=== PATIENT | male | born 1960 | race Caucasian/White ===

== ENCOUNTER 2016-10-11 06:05 | Emergency (ER) | payer SELFPAY ==
[2016-10-11 06:23] VITALS: BP 169/102
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
--- NOTE | 2016-10-11 07:52 | RAD ---
INDICATION: Right ring finger injury. TECHNIQUE: 3 views of the right ring finger were obtained. FINDINGS: There is a comminuted fracture of the mid and distal portion of the proximal phalanx. The fracture fragments are slightly . In addition there is significant dorsal angulation of the distal fragment relative to the proximal fragment. Joint spaces appear maintained. IMPRESSION: COMMINUTED, ANGULATED FRACTURE OF THE PROXIMAL PHALANX.
== END 2016-10-11 07:02 | disposition home or self-care (01) ==
LOC: ED 06:05
DX: S62.614A Displaced fracture of proximal phalanx of right ring finger, initial encounter for closed fracture (principal); W19.XXXA Unspecified fall, initial encounter; Y93.9 Activity, unspecified; Y92.9 Unspecified place or not applicable; F17.210 Nicotine dependence, cigarettes, uncomplicated
CPT/HCPCS: 73140; 99282

== ENCOUNTER → 2016-10-15 07:27 | Day surgery (SDC) | payer OTHER ==
[~2016-10-15 07:27] MED LIST: Buffered Lidocaine 1% SYRIN* 3 ML/SYR SYRINGE INTRADERM ONE; Bupivacaine 0.5% SDV PF* 30 ML VIAL ONE; HYDROcodone/ACETAMIN 5-325 MG* 1 TAB ONE; Ketorolac INJ* 30 MG/ML 1 ML VIAL IV PRN; Ketorolac INJ* 30 MG/ML 1 ML VIAL ONE; Midazolam* 1 MG/ML 2 ML VIAL (2 MG) ONE; Ondansetron INJ* 2 MG/ML VIAL IV PRN; ceFAZolin 2 GM PREMIX(*) 2 GM/50 ML BAG IVPB ONE; fentaNYL* 50 MCG/ML 2 ML VIAL (100 MCG VIAL) ONE
[2016-10-15] MEDS: fentaNYL* 50 MCG/ML 2 ML VIAL (100 MCG VIAL) IV PRN ×2 (10:06→10:16)
[2016-10-15 10:46] VITALS: BP 129/84
--- NOTE | 2016-10-15 15:25 | RAD ---
INDICATION: Right fourth digit trauma COMPARISONS: October 11, 2016 TECHNIQUE: Fluoroscopy was provided for a surgical procedure. Total fluoroscopy time is: 3 minutes, 38 seconds FINDINGS: Spot images demonstrate external fixation of the proximal findings of the fourth digit IMPRESSION: FLUOROSCOPY WAS PROVIDED FOR A SURGICAL PROCEDURE CPT II Codes: 6045F
--- NOTE | 2016-10-16 00:26 | OP ---
DATE OF OPERATION: 10/15/16 - [facility] DATE OF : 60 SURGEON: Maia Esquivel MD STORE CLERK CHECKER: HENRY Ahmadi ANESTHESIOLOGIST: Ricardo Juarez MD ANESTHESIA: General. PRE-OP DIAGNOSIS: Comminuted displaced fracture of the right ring finger. POST-OP DIAGNOSIS: Comminuted displaced fracture of the right ring finger. OPERATIVE PROCEDURE: Right ring finger, closed reduction and pinning. ESTIMATED BLOOD LOSS: Zero. INDICATION: Jerome is a 56-year-old man who had a work injury. He was cleaning the floor and a chair dropped on his right hand, fracturing his right ring finger. He presents for closed reduction and pinning. DESCRIPTION OF PROCEDURE: The patient was brought to the operating room and was given a general anesthetic and placed in a supine position on the operating table. The skin of his right upper extremity was prepped and draped in the usual sterile fashion. With longitudinal traction and flexion, the fracture was reduced and then two 0.035 inch K-wires were driven through the metacarpal head with the MP joint at 90 degrees of flexion and the up the shaft and into the distal fragments of the proximal phalanx. The fracture was extremely comminuted and there was no other way to gain purchase to keep the fracture fragments aligned. The alignment on the AP and lateral views was found to be satisfactory and clinically the finger was well aligned. The pins were bent and cut, dressed with Xeroform, 4x4, Webril, and a volar splint. The patient tolerated the procedure well and was brought to the recovery room in good condition. [id number]/[facility] #: [id number] [facility]
== END | disposition home or self-care (01) ==
LOC: OREAST 07:27
PROVIDERS: ATTEND Orthopaedic Surgery
DX: S62.614A Displaced fracture of proximal phalanx of right ring finger, initial encounter for closed fracture (principal); W22.8XXA Striking against or struck by other objects, initial encounter; I10 Essential (primary) hypertension; F17.200 Nicotine dependence, unspecified, uncomplicated
CPT/HCPCS: 76000; C1776; J0690; J1885; J2250; J3010

== ENCOUNTER 2016-10-20 04:49 | Emergency (ER) | payer OTHER ==
[2016-10-20] MEDS ORDERED: NS 0.9% 1000 ML* 1,000 ML IV ONE ×2 (04:57→07:39)
[2016-10-20] MEDS ORDERED: Ondansetron INJ* 2 MG/ML VIAL IV ONE (04:57)
[2016-10-20 05:37] LABS: Hematocrit 48 % (42-52); Hemoglobin 16.1 g/dl (14.0-18.0); Mean Corpuscular HGB Conc 34 g/dl (31-36); Mean Corpuscular Hemoglobin 31 pg (27-31); Mean Corpuscular Volume 91 fL (80-94); Mean Platelet Volume 10 um3 (7.4-10.4); Red Blood Count 5.24 10^6/ul (4.0-5.4); Red Cell Distribution Width 14 % (10.5-15); White Blood Count 19.4 10^3/ul (3.5-10.8)
[2016-10-20 05:48] LABS: Albumin 4.4 g/dL (3.2-5.2); BUN/Creatinine Ratio 24.4 (8-20); C Reactive Protein 3.14 mg/L (< 5.00); EGFR African American 112.3 (>60); EGFR Non-African American 87.3 (>60); Globulin 3.2 g/dL (2-4); Potassium 3.9 mmol/L (3.5-5.0); Total Bilirubin 0.4 mg/dL (0.2-1.0); Total Protein 7.6 g/dL (6.4-8.9)
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
[2016-10-20 08:16] LABS: Urine Bilirubin Negative (Negative); Urine Glucose Negative (Negative); Urine Nitrite Negative (Negative)
[2016-10-20 10:04] VITALS: BP 169/91
--- NOTE | 2016-10-20 16:36 | ED ---
Homero Queen Adam, scribed for Carroll Lake MD on 10/20/16 at 1007 . Progress - Progress Note Progress Note: This patient was signed out to me by Dr. May. Re-Evaluation - Re-Evaluation First Eval Re-Evaluation Time: 09:00 - Pt is still feeling chilled. His states that the pt has these symptoms approximately once a year since 2011. Anti-emetics do not work. Pt is mildly nauseous now. He has not vomited since arriving at the ED. He denies any tenderness in his abdomen. Second Eval Re-Evaluation Time: 09:45 - Pt was ambulated and is not orthostatic. Tolerated PO. Pt will be discharged with follow-up with Dr. Becker (GI) in 2 days for recurrent vomiting and diarrhea. He was instructed to return to the ED for any changing or worsening symptoms. Rx for Reglan will be given. Course/Dx - Diagnoses Provider Diagnoses: Gastroenteritis The documentation as recorded by the coreyibHomero fuchs Adam accurately reflects the service I personally performed and the decisions made by me, Carroll Lake MD.
== END 2016-10-20 10:05 | disposition home or self-care (01) ==
LOC: ED 04:49
DX: K52.9 Noninfective gastroenteritis and colitis, unspecified (principal); R11.2 Nausea with vomiting, unspecified; R19.7 Diarrhea, unspecified
CPT/HCPCS: 36415; 80053; 81003; 83605; 83690; 85025; 86140; 87040; 96374; 99284; J2405

== ENCOUNTER 2016-10-20 17:59 | Observation (INO) | payer OTHER ==
[2016-10-20] MEDS ORDERED: NS 0.9% 1000 ML* 2,000 ML IV ONE (19:00)
[2016-10-20 19:27] LABS: Hematocrit 45 % (42-52); Hemoglobin 15.1 g/dl (14.0-18.0); Mean Corpuscular HGB Conc 34 g/dl (31-36); Mean Corpuscular Hemoglobin 31 pg (27-31); Mean Corpuscular Volume 91 fL (80-94); Mean Platelet Volume 9 um3 (7.4-10.4); Red Blood Count 4.91 10^6/ul (4.0-5.4); Red Cell Distribution Width 14 % (10.5-15); White Blood Count 16.1 10^3/ul (3.5-10.8)
[2016-10-20 19:44] LABS: Albumin 4.4 g/dL (3.2-5.2); BUN/Creatinine Ratio 20.5 (8-20); C Reactive Protein 9.27 mg/L (< 5.00); Calcium 9.9 mg/dL (8.6-10.3); EGFR African American 115.2 (>60); EGFR Non-African American 89.6 (>60); Globulin 3.2 g/dL (2-4); Potassium 3.4 mmol/L (3.5-5.0); Total Bilirubin 0.7 mg/dL (0.2-1.0); Total Protein 7.6 g/dL (6.4-8.9)
[2016-10-20] MEDS ORDERED: LORazepam INJ* 2 MG/ML 1 ML VIAL IV ONE (20:19)
[2016-10-20] MEDS ORDERED: NS 0.9% 1000 ML* 1,000 ML IV SCH (22:15)
[2016-10-20] MEDS ORDERED: Iohexol 300* (CONTRAST) 10 ML SDV IV ONE (22:24)
[2016-10-20] MEDS ORDERED: Ondansetron INJ* 2 MG/ML VIAL IV ONE (23:12)
--- NOTE | 2016-10-21 00:34 | ED ---
Martha Queen Alok, scribed for Marcellus Díaz MD on 10/20/16 at 2216 . Progress - Progress Note Progress Note: NO CRITICAL CARE TIME. PATIENT CONTINUES TO BE NAUSEOUS IN ED, NOT TOLERATING PO. ADMIT HOSPITALIST STABLE. - EKG/XRAY/CT CT: CT abd/pel - IMPRESSION: NO LOCALIZING SIGNS FOR ACUTE PATHOLOGY. Re-Evaluation - Re-Evaluation First Eval Re-Evaluation Time: 22:16 Course/Dx - Diagnoses Provider Diagnoses: Gastroenteritis - Provider Notifications Discussed Care Of Patient With: Dr. Mills (Hospitalist) @ 2210 - Will admit pt following CT The documentation as recorded by the coreyibMartha fuchs Alok accurately reflects the service I personally performed and the decisions made by Bre quiroga William, MD.
[2016-10-21] MEDS ORDERED: Ondansetron INJ* 2 MG/ML VIAL IV PRN (00:36)
[2016-10-21] MEDS: NS 0.9% 1000 ML* 1,000 ML IV SCH ×2 (01:40→10:01)
[2016-10-21] MEDS: Heparin VIAL(*) 5000 UNITS/ML VIAL (FIVE THOUSAND) SUBCUT SCH ×3 (06:18→22:04)
--- NOTE | 2016-10-21 07:47 | RAD ---
CLINICAL HISTORY: Abdominal pain, nausea and vomiting. COMPARISON: Most recent comparison CT is dated January 08, 2016 TECHNIQUE: Contrast enhanced CT examination of the abdomen and pelvis from the lung bases through the initial tuberosities. The patient received 91 mL Omnipaque 300 intravenously prior to imaging.The patient received oral contrast as well prior to imaging. FINDINGS: VISUALIZED LUNG BASES: The visualized lung bases are grossly clear. There is no pleural effusion. ABDOMEN AND PELVIS: There is apparent wall thickening of the distal esophagus extending into the gastroesophageal junction (image 14 of 94) measuring up to 1 cm in thickness. In the right lobe of the liver (image 31) there is a 5 mm hypoattenuating focus unchanged from the January 08, 2016 CT examination. The remainder the liver is homogenous in attenuation. In the cephalocaudal projection the liver measures up to 21.3 cm The spleen, pancreas and adrenal glands are grossly normal in appearance. The gallbladder is normal. The kidneys are normal in appearance without focal mass, calcification or signs of hydronephrosis. Neural contrast has progressed as far as the distal small bowel which limits evaluation of the colon and appendix. The small and large bowel are not distended. The patient's normal appendix is identified in the right lower quadrant measuring 5 mm in diameter (coronal image 45). Scattered rectosigmoid diverticula are seen but none exhibit acute inflammatory change. There is no gross retroperitoneal or mesenteric lymphadenopathy. The pelvic viscera is normal in appearance. At the infrarenal abdominal aorta there is coarse somewhat eccentric atherosclerotic calcification extending into the iliac arteries. Similar eccentric calcification is noted at the bilateral common femoral arteries. Degenerative changes include multilevel loss of intervertebral disc height involving the lower thoracic and lumbar spine.There are no sinister bone lesions. IMPRESSION: 1. Questionable circumferential thickening of the distal esophagus and gastroesophageal junction. Please correlate to symptoms of GERD. If clinically warranted further characterization can be made with endoscopy. 2. Mild hepatomegaly of uncertain clinical significance. 3. Additional chronic and degenerative findings as described in the body of the report unlikely to be likely contributing to the patient's current presentation.
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
[2016-10-21 08:46] LABS: Magnesium 1.8 mg/dL (1.9-2.7)
--- NOTE | 2016-10-21 08:54 | HP ---
HISTORY AND PHYSICAL: DATE OF ADMISSION: 10/21/16 CHIEF COMPLAINT: Nausea, vomiting. HISTORY OF PRESENT ILLNESS: The patient is a 56-year-old gentleman who presented to [facility] with a chief complaint of nausea, vomiting. He was here last night with similar complaints, but felt better and went home. He came back in later in the day with more nausea, vomiting. He states he has the flu. Very little abdominal pain. Some body aches and pains and weakness, but no other specific complaints. No change in his bowel movements. He feels somewhat better after receiving Ativan. Apparently, actually, he refused antiemetics in the ED. PAST MEDICAL HISTORY: Significant for hypertension. CURRENT MEDICATIONS: 1. Percocet 5/325 one tab every 4 hours as needed. 2. Ibuprofen 400 mg every 6 hours as needed. 3. Hydrochlorothiazide 12.5 mg daily. 4. Aspirin 325 mg daily. ALLERGIES: He has no known drug allergies. FAMILY HISTORY: Father with coronary artery disease. SOCIAL HISTORY: Smokes one pack a day for 26 years. Occasional alcohol. Occasional marijuana. 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 He is . His is his healthcare proxy. He has no children. REVIEW OF SYSTEMS: A 14-point review of systems was completed with the patient. All pertinent positives and negatives are in the history of present illness, otherwise it is negative. PHYSICAL EXAMINATION GENERAL: A pleasant gentleman, lying in bed, in no acute distress. VITAL SIGNS: Blood pressure 169/88, pulse ox 95%, respiratory rate 16 breaths per minute, heart rate 79 beats per minute, temperature 99.2 degrees. HEENT: Normocephalic, atraumatic. Pupils equal, round, and react to light. Moist mucous membranes. NECK: Supple. No JVD, bruits, palpable thyroid, or lymphadenopathy. CHEST: Clear to auscultation and percussion bilaterally. CARDIOVASCULAR: S1, S2 appreciated. Regular rate and rhythm. ABDOMEN: Positive bowel sounds in all 4 quadrants. Soft, nontender, nondistended. EXTREMITIES: No cyanosis, clubbing, or edema. NEURO: Alert and oriented x3. Moves all extremities. SKIN: No rashes or abnormalities. LABORATORY DATA/DIAGNOSTIC STUDIES: White count 16.1, hemoglobin 6.1, hematocrit 45, platelets 222. Sodium 136, potassium 3.4, chloride 99, CO2 26, BUN 18, creatinine 0.88, glucose 125, lactic acid 2.7. His CAT scan shows no localizing signs for acute pathology. An EKG shows normal sinus rhythm at 97 beats per minute, normal axis, PVC, LVH, nonspecific ST-T wave changes. ASSESSMENT AND PLAN: 1. Intractable nausea, vomiting, already improved. I think the patient probably had gastroenteritis or viral syndrome. We will hydrate with normal saline 100 mL an hour, Zofran p.r.n., likely d/c in a.m. 2. Hypertension. Stable, continue current regimen. 3. FEN. Regular diet. 4. DVT prophylaxis. Heparin subcu. 5. The patient is a full code. TIME SPENT: Over 75 minutes were spent on this H and P, more than 40 minutes of which were spent in direct [id number] contact with the patient in evaluation, physical exam, counseling, and coordination of care. CC: Conrad Woo MD* [id number]/[facility] #: [id number] ABRAN
[2016-10-21] MEDS ORDERED: Pantoprazole IV* 40 MG IV SCH (09:00)
--- NOTE | 2016-10-21 11:42 | PN ---
Subjective Date of Service: 10/21/16 Interval History: pt c/o sweats, N/V diarrhea x 2 days. similar to an episode last year. Had been taking ibuprofen for fractured finger that was splinted 3 days ago. Smokes 1ppd and marijuana daily. Still nauseated and vomiting this aM. Objective Active Medications: Heparin Sodium (Porcine) (Heparin Vial(*)) 5,000 units SUBCUT Q8HR [facility] Last Admin: 10/21/16 06:18 Dose: 5,000 units Sodium Chloride (Ns 0.9% 1000 Ml*) 1,000 mls @ 125 mls/hr IV PER RATE [facility] Last Admin: 10/21/16 10:01 Dose: 125 mls/hr Ondansetron HCl (Zofran Inj*) 4 mg IV Q4H PRN PRN Reason: NAUSEA Pantoprazole Sodium (Protonix Iv*) 40 mg IV Q24H [facility] Last Admin: 10/21/16 10:01 Dose: 40 mg Vital Signs 10/21/16 10/21/16 10/21/16 00:47 00:57 01:00 Temperature Pulse Rate 76 96 Respiratory Rate Blood Pressure 160/80 169/88 (mmHg) O2 Sat by Pulse 92 84 Oximetry 10/21/16 10/21/16 10/21/16 01:05 01:12 01:39 Temperature 99.8 F 98.1 F Pulse Rate 79 74 76 Respiratory 16 20 Rate Blood Pressure 160/80 147/84 (mmHg) O2 Sat by Pulse 95 99 Oximetry 10/21/16 07:51 Temperature 97.9 F Pulse Rate 57 Respiratory 16 Rate Blood Pressure 167/92 (mmHg) O2 Sat by Pulse 100 Oximetry Oxygen Devices in Use Now: None Appearance: 56 yo M in nAd, aAOx3, poor historian Eyes: No Scleral Icterus, PERRLA Ears/Nose/Mouth/Throat: NL Teeth, Lips, Gums, Mucous Membranes Moist Neck: NL Appearance and Movements; NL JVP, Trachea Midline Respiratory: Symmetrical Chest Expansion and Respiratory Effort, Clear to Auscultation Cardiovascular: NL Sounds; No Murmurs; No JVD, RRR Abdominal: NL Sounds; No Tenderness; No Distention Lymphatic: No Cervical Adenopathy Extremities: No Edema, No Clubbing, Cyanosis, - - R wrist in splint all the way to the tips of pt's fingers Skin: No Rash or Ulcers, No Nodules or Sclerosis Neurological: Alert and Oriented x 3, NL Muscle Strength and Tone, - - R wrist not assesed due to splint Result Diagrams: 10/20/16 18:14 10/20/16 18:14 Additional Lab and Data: Lab Results 10/20/16 10/20/16 10/20/16 Range/Units 18:14 18:14 18:14 WBC 16.1 H (3.5-10.8) 10^3/ul RBC 4.91 (4.0-5.4) 10^6/ul Hgb 15.1 (14.0-18.0) g/dl Hct 45 (42-52) % MCV 91 (80-94) fL MCH 31 (27-31) pg MCHC 34 (31-36) g/dl RDW 14 (10.5-15) % Plt Count 222 (150-450) 10^3/ul MPV 9 (7.4-10.4) um3 Neut % (Auto) 83.0 (38-83) % Lymph % (Auto) 9.6 L (25-47) % [place] % (Auto) 7.0 (1-9) % Eos % (Auto) 0 (0-6) % Baso % (Auto) 0.4 (0-2) % Absolute Neuts (auto) 13.4 H (1.5-7.7) 10^3/ul Absolute Lymphs (auto) 1.5 (1.0-4.8) 10^3/ul Absolute Monos (auto) 1.1 H (0-0.8) 10^3/ul Absolute Eos (auto) 0 (0-0.6) 10^3/ul Absolute Basos (auto) 0.1 (0-0.2) 10^3/ul Absolute Nucleated RBC 0.02 10^3/ul Nucleated RBC % 0.1 Sodium 136 (133-145) mmol/L Potassium 3.4 L (3.5-5.0) mmol/L Chloride 99 L (101-111) mmol/L Carbon Dioxide 26 (22-32) mmol/L Anion Gap 11 (2-11) mmol/L BUN 18 (6-24) mg/dL Creatinine 0.88 (0.67-1.17) mg/dL Est GFR ( Amer) 115.2 (>60) Est GFR (Non-Af Amer) 89.6 (>60) BUN/Creatinine Ratio 20.5 H (8-20) Glucose 125 H (70-100) mg/dL Lactic Acid 2.7 H* (0.5-2.0) mmol/L Calcium 9.9 (8.6-10.3) mg/dL Total Bilirubin 0.70 (0.2-1.0) mg/dL AST 33 (13-39) U/L ALT 49 (7-52) U/L Alkaline Phosphatase 61 (34-104) U/L C-Reactive Protein 9.27 H (< 5.00) mg/L Total Protein 7.6 (6.4-8.9) g/dL Albumin 4.4 (3.2-5.2) g/dL Globulin 3.2 (2-4) g/dL Albumin/Globulin Ratio 1.4 (1-3) Lipase 15 (11.0-82.0) U/L Assess/Plan/Problems-Billing Assessment: 56 yo M with h/o tobacco, marijuana use, as well as HTN presents with N/V and esophageal thickening on CT - Patient Problems (1) Gastroenteritis Comment: N&V - likely viral gastroenteritis, although with pt's h/o having a smililar episode "yearly" and daily marijuana use it is possible that it may be related to cannabis hyperemesis syndrome ( d/w Pt who got upset when informed that marijuana use could cause it) For now cont IVF and antiemetics (2) Esophageal abnormality Comment: thickening noted on CT for EGD today cont PPI IV (3) Tobacco abuse Comment: counseled, cont nicotine inhaler. (4) Hypertension Comment: Cont HCTZ (5) Fracture of phalanx of right ring finger Comment: cont splint (6) DVT (deep venous thrombosis) Comment: low risk , ambulation Status and Disposition: OBV
[2016-10-21] MEDS ORDERED: Nicotine Inhaler* 10 MG AMP INH PRN (11:48)
[2016-10-21] MEDS ORDERED: Mouth Piece, Nicotine* 1 EACH CARTRIDGE INH ONE (12:00)
[2016-10-21] MEDS: Hydrochlorothiazide TAB* 25 MG PO SCH (13:05)
[2016-10-21] MEDS ORDERED: Meperidine SYRINGE* 50 MG/ML ONE (14:32)
[2016-10-21] MEDS ORDERED: Midazolam* 1 MG/ML 10 ML VIAL (10 MG) ONE (14:32)
--- NOTE | 2016-10-21 18:22 | CONS ---
CONSULTATION REPORT: DATE OF CONSULTATION: 10/21/16 REQUESTING PHYSICIAN: Dr. Euceda. INDICATION: Nausea and vomiting. NARRATIVE: Mr. Loredo is a 56-year-old gentleman who states that he developed nausea and vomiting about 48 hours ago. He came to the emergency room yesterday morning due to severe nausea and vomiting. He had blood work that was unremarkable and was diagnosed as having gastroenteritis and he was feeling better, so he decided to go home. A few hours later the nausea and vomiting worsened, he re- presented to the emergency room and was admitted late last night with a presumptive diagnosis of gastroenteritis. He did have a CT of abdomen and pelvis while in the emergency room, which did reveal esophageal thickening. No other abnormalities. The patient states that he has had the flu for the past week. No abdominal pain. He does have muscle aches and weakness. He has been having intermittent fevers. PAST MEDICAL HISTORY: Hypertension. CURRENT MEDICATIONS: Include: 1. Aspirin. 2. Hydrochlorothiazide. 3. Ibuprofen. 4. Percocet. ALLERGIES: None. FAMILY HISTORY: Coronary artery disease. SOCIAL HISTORY: He does smoke tobacco. He additionally uses marijuana on a very regular basis. REVIEW OF SYSTEMS: Twelve systems were reviewed, other than that mentioned in the HPI were unremarkable. PHYSICAL EXAMINATION: Vital Signs: Temperature is 99.8, blood pressure 160/80 , pulse is 74, respiratory rate is 16, O2 sat is 94%. General: Chronically ill - appearing male, no apparent distress. Alert, oriented, pleasant, and fluent. HEENT: Mucous membranes are moist without lesions. Dentition is poor. Face is very flushed. Heart: Regular rate and rhythm and tachy. Lungs: Clear to auscultation. Abdomen: Positive bowel sounds, soft, nontender, and nondistended. No hepatosplenomegaly, masses, rebound, or guarding. Skin: Warm and dry. Musculoskeletal: No CVA or spinal tenderness to palpation. Gait: Normal. DIAGNOSTIC STUDIES/LAB DATA: Of note, his BUN is 18, creatinine is 0.88, glucose of 125. LFTs are unremarkable. C-reactive protein of 9.27. Lipase is normal. CT of abdomen and pelvis revealed questionable circumferential thickening of the distal esophagus in GE junction. Mild hepatomegaly. ASSESSMENT AND PLAN: This is a pleasant 56-year-old gentleman with nausea and vomiting who has a CT showing possible distal esophageal thickening. Possibilities would include erosive esophagitis, H. Pylori, hyperemesis from his marijuana use. At this point, the patient does need an EGD. I will make arrangements for it in the very near future. CC: Dr. Euceda [id number]/[facility] #: [id number] MTDD
[2016-10-21] MEDS ORDERED: amLODIPine TAB* 5 MG PO ONE (18:26)
[2016-10-22] MEDS ORDERED: Temazepam CAP* 15 MG PO PRN (00:25)
[2016-10-22] MEDS ORDERED: amLODIPine TAB* 5 MG PO ONE (00:25)
--- NOTE | 2016-10-22 00:50 | PRO ---
DATE OF PROCEDURE: 10/21/16 - ROOM #408 PROCEDURE: EGD. INDICATION: Nausea and vomiting. REFERRING PHYSICIAN: Conrad Woo MD MEDICATIONS GIVEN: 50 mg IV Demerol and 10 mg IV Versed. DESCRIPTION OF PROCEDURE: After the EGD procedure including the risks, benefits , and alternatives not limited to perforation, surgery, and/or were explained to Mr. Patel, written consent was then obtained, IV medication was given, and a biteblock was placed between the teeth. An Olympus pediatric gastroscope was then inserted into the patient's mouth and advanced down the esophagus, into the stomach, into the distal duodenum. In the esophagus, at the GE junction, the Z-line was intact. I did not appreciate any erosive esophagitis, stricture, or ring. Biopsies were obtained due to the fact that a recent CT showed thickening of the mucosa. I did not appreciate again any erosive esophagitis. The scope was advanced through a widely patent GE junction into the body of the stomach. Retroflexed and forward views revealed mild gastritis. H. pylori with biopsy was obtained and regular biopsies were obtained. The scope was advanced through a widely patent pylorus, into the duodenal bulb, into the distal duodenum, both of which contained duodenitis. Biopsies were obtained. The scope was then withdrawn from the patient. He tolerated the procedure well and was returned to his hospital room in stable condition. IMPRESSION: 1. Complete upper endoscopy into the distal duodenum with biopsies. 2. No evidence of esophageal thickening. Biopsies were obtained. 3. Gastritis, status post biopsy. 4. Duodenitis, status post biopsy. 5. No obvious etiology was seen for his nausea and vomiting. We still need to consider marijuana hyperemesis. CC: Dr. Woo* [id number]/[facility] #: [id number] [facility]
[2016-10-22] MEDS: Heparin VIAL(*) 5000 UNITS/ML VIAL (FIVE THOUSAND) SUBCUT SCH (05:29)
[2016-10-22 06:12] LABS: Hematocrit 42 % (42-52); Hemoglobin 14.4 g/dl (14.0-18.0); Mean Corpuscular HGB Conc 34 g/dl (31-36); Mean Corpuscular Hemoglobin 31 pg (27-31); Mean Corpuscular Volume 91 fL (80-94); Mean Platelet Volume 9 um3 (7.4-10.4); Red Blood Count 4.67 10^6/ul (4.0-5.4); Red Cell Distribution Width 14 % (10.5-15); White Blood Count 10.7 10^3/ul (3.5-10.8)
[2016-10-22 06:36] LABS: BUN/Creatinine Ratio 16.7 (8-20); Calcium 9.3 mg/dL (8.6-10.3); EGFR African American 160.6 (>60); EGFR Non-African American 124.9 (>60); Potassium 3.2 mmol/L (3.5-5.0)
[2016-10-22 08:20] VITALS: BP 138/72
[2016-10-22] MEDS: Hydrochlorothiazide TAB* 25 MG PO SCH (08:25)
[2016-10-22] MEDS ORDERED: Omeprazole CAP* 20 MG PO SCH (09:00)
--- NOTE | 2016-10-23 01:02 | DS ---
CC: Dr. Woo; Dr. Becker; Dr. Esquivel DISCHARGE SUMMARY: DATE OF ADMISSION: 10/21/16 DATE OF DISCHARGE: 10/22/16 PRIMARY CARE PROVIDER: Dr. Woo. DISCHARGE DIAGNOSES: 1. Nausea and vomiting, most likely due to gastroenteritis, although marijuana- related hyperemesis is in differential. 2. Gastritis. SECONDARY DIAGNOSES: 1. Hypertension. 2. Status post right ring finger fracture. The patient currently has a cast. MEDICATIONS AT DISCHARGE: 1. Prilosec 20 mg daily. 2. Oxycodone/acetaminophen on a p.r.n. basis. 3. Hydrochlorothiazide 12.5 mg daily. PROCEDURES DURING THE HOSPITAL STAY: Included upper endoscopy performed by Dr. Becker on 10/21/16. The procedure report, impression: "Complete upper endoscopy in the distal duodenum with biopsies. No evidence of esophageal thickening. Biopsies were obtained. Gastritis, status post biopsy. Duod enitis, status post biopsy. No obvious etiology was seen for this nausea and vomiting. We still ne ed to consider marijuana hyperemesis." DIAGNOSTIC STUDIES/LAB DATA PRIOR TO DISCHARGE: White blood cell count of 10.7, hemoglobin of 14.4, hematocrit of 42, and platelets of 193. Sodium 131, potassium 3.2, chloride 96, carbon dioxide 27, BUN 11, creatinine 0.66. CT of abdomen and pelvis on 10/20/16, impression: "Questionable circumferential thickening of the d istal esophagus and gastroesophageal junction. Please correlate to symptoms of gastroesophageal ref lux disease. If clinically warranted, further characterization to be made with endoscopy. Mild hep atomegaly of uncertain clinical significance. Additional chronic and degenerative findings as descr ibed in the body of the report." HOSPITALIZATION COURSE: Mr. Loredo is a 56-year-old male, who has history of what appears to be cycl ical nausea and vomiting. The patient fractured his right ring finger at the beginning of the week and was placed in a splint 4 days ago. He had been using ibuprofen p.r.n. for pain. He presented t o the hospital with intractable nausea and vomiting. The patient also has history of chronic daily marijuana use and that was raised as possible etiology of the patient's cyclical vomiting, although the patient was not happy with the diagnosis. Nevertheless, due to CT showing circumferential thick ening of the vessel that is mentioned above and EGD was performed by Dr. Becker that noticed gastri tis but no confirmation of the thickening was noted during the EGD. The patient was placed on intra venous fluids and Protonix intravenously throughout his hospital stay and by the time of discharge, he was able to tolerate regular diet. He is going to be placed on Prilosec twice a day. He was adv ised not to use nonsteroidal antiinflammatory medications anymore and use Tylenol or the Percocet as provided by his orthopedic surgeon. At discharge, the patient is recommended to follow up with his primary care provider in approximatel y 4 to 7 days. PHYSICAL EXAMINATION AT THE TIME OF DISCHARGE: Blood pressure of 138/72, heart rate of 69 and regul ar, respiratory rate 16, oxygen saturation 96% on room air, temperature 99.0. General: The patient is very pleasant 56-year-old male, who is in no acute distress. Alert, awake, and oriented x3. HE ENT: Head: Atraumatic, normocephalic. Eyes: Pupils equal, reactive to light and accommodation. O ropharynx clear. Mucosa moist. Neck: Supple. No JVD, no bruit bilaterally. Cardiovascular: Regu lar rate and rhythm. No murmur. Respiratory: Clear to auscultation bilaterally. Abdomen: Soft, nontender. Bowel sounds present in all 4 quadrants. Extremities: There is no edema. Pulses +2 bi laterally. No clubbing or cyanosis. Please note that right wrist is in a cast. Please note that this is a short summary of the patient's hospital stay. Please refer to further wa dical records for details. TIME SPENT: Approximately 40 minutes was spent on the patient's discharge. [id number]/[facility] #: [id number]
== END 2016-10-22 10:00 | disposition home or self-care (01) ==
LOC: ED 17:59 → MED 10-21 00:37
PROVIDERS: ADMIT Internal Medicine; ATTEND Internal Medicine
PROC: 0DB98ZX Excision of Duodenum, Via Natural or Artificial Opening Endoscopic, Diagnostic (ICD-10-PCS; principal; 2016-10-21)
PROC: 0DB68ZX Excision of Stomach, Via Natural or Artificial Opening Endoscopic, Diagnostic (ICD-10-PCS; 2016-10-21)
PROC: 0DB58ZX Excision of Esophagus, Via Natural or Artificial Opening Endoscopic, Diagnostic (ICD-10-PCS; 2016-10-21)
DX: R11.2 Nausea with vomiting, unspecified (principal); K29.70 Gastritis, unspecified, without bleeding; K29.80 Duodenitis without bleeding; K22.9 Disease of esophagus, unspecified; I10 Essential (primary) hypertension; I51.7 Cardiomegaly; R94.31 Abnormal electrocardiogram [ECG] [EKG]; Z79.899 Other long term (current) drug therapy; F12.10 Cannabis abuse, uncomplicated; F17.210 Nicotine dependence, cigarettes, uncomplicated
CPT/HCPCS: 36415; 74177; 80048; 80053; 83605; 83690; 83735; 85025; 86140; 87077; 88305; 88312; 93005; 96361; 96372; 96374; 96375; 99285; A9270-GY; G0378; J1644; J2060; J2250; Q9967

== ENCOUNTER 2017-01-25 07:21 | Emergency (ER) | payer OTHER ==
[2017-01-25 07:25] VITALS: BP 140/100
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
== END 2017-01-25 09:05 | disposition home or self-care (01) ==
LOC: ED 07:21
DX: S61.210A Laceration without foreign body of right index finger without damage to nail, initial encounter (principal); W26.9XXA Contact with unspecified sharp object(s), initial encounter; Y93.9 Activity, unspecified; Y92.9 Unspecified place or not applicable; Y99.9 Unspecified external cause status; F17.210 Nicotine dependence, cigarettes, uncomplicated
CPT/HCPCS: 12001; 99282

== ENCOUNTER 2017-01-31 09:31 | Observation (INO) | payer OTHER ==
[2017-01-31] MEDS ORDERED: NS 0.9% 1000 ML* 1,000 ML IV ONE ×2 (11:47→13:47)
[2017-01-31] MEDS ORDERED: Ondansetron INJ* 2 MG/ML VIAL IV ONE (11:47)
[2017-01-31 12:13] LABS: Hematocrit 52 % (42-52); Hemoglobin 17.4 g/dl (14.0-18.0); Mean Corpuscular HGB Conc 33 g/dl (31-36); Mean Corpuscular Hemoglobin 32 pg (27-31); Mean Corpuscular Volume 96 fL (80-94); Mean Platelet Volume 9 um3 (7.4-10.4); Red Blood Count 5.44 10^6/ul (4.0-5.4); Red Cell Distribution Width 14 % (10.5-15); White Blood Count 13.5 10^3/ul (3.5-10.8)
--- NOTE | 2017-01-31 12:26 | RAD ---
HISTORY: Chest pain COMPARISONS: January 27, 2016 VIEWS:1: Single frontal portable view of the chest at 12 5:00 PM FINDINGS: LINES AND TUBES: None. CARDIOMEDIASTINAL SILHOUETTE: The cardiomediastinal silhouette is normal for portable technique. PLEURA: The costophrenic angles are sharp. No pleural abnormalities are noted. LUNG PARENCHYMA: The lungs are clear. ABDOMEN: The upper abdomen is clear. There is no subphrenic gas. BONES AND SOFT TISSUES: No bone or soft tissue abnormalities are noted. IMPRESSION: NO ACTIVE CARDIOPULMONARY DISEASE.
[2017-01-31 12:28] LABS: ALT 19 U/L (7-52); AST 17 U/L (13-39); Albumin 4.8 g/dL (3.2-5.2); Alkaline Phosphatase 57 U/L (34-104); Amylase 24 U/L (29-103); Anion Gap 10 mmol/L (2-11); Blood Urea Nitrogen 15 mg/dL (6-24); C Reactive Protein < 1.00 mg/L (< 5.00); CO2 Carbon Dioxide 25 mmol/L (22-32); Calcium 10.4 mg/dL (8.6-10.3); Chloride 101 mmol/L (101-111); Creatine Kinase 59 U/L (10-223); EGFR African American 106.8 (>60); Globulin 3.3 g/dL (2-4); Glucose 161 mg/dL (70-100); Lipase 15 U/L (11.0-82.0); Sodium 136 mmol/L (133-145); Total Protein 8.1 g/dL (6.4-8.9)
[2017-01-31] MEDS ORDERED: Metoclopramide IV* 5 MG/ML 2 ML VIAL IV SLOW PU ONE (13:36)
[2017-01-31 14:38] LABS: TSH (Thyroid Stimulating Horm) 0.62 mcIU/mL (0.34-5.60)
[2017-01-31 14:45] LABS: Free T4 0.95 ng/dL (0.61-1.12)
[2017-01-31 19:12] LABS: Urine Bilirubin Negative (Negative); Urine Glucose 1+(50 mg/dL) (Negative); Urine Nitrite Negative (Negative)
[2017-01-31] MEDS ORDERED: Calcium Carbonate CHEW TAB* 500 MG (TUMS) ONE (20:48)
[2017-01-31] MEDS: Hydrochlorothiazide TAB* 25 MG PO SCH (20:49)
[2017-01-31] MEDS: Calcium Carbonate CHEW TAB* 500 MG (TUMS) PO PRN (20:49)
[2017-01-31] MEDS: Ondansetron INJ* 2 MG/ML VIAL IV PRN (21:18)
[2017-01-31] MEDS ORDERED: Acetaminophen TAB* 325 MG PO PRN (21:48)
[2017-01-31] MEDS: Zolpidem TAB* 5 MG PO PRN (23:22)
--- NOTE | 2017-02-01 00:33 | HP ---
CC: Conrad Woo MD * HISTORY AND PHYSICAL: DATE OF ADMISSION: 01/31/17 PRIMARY CARE PROVIDER: Conrad Woo MD. ATTENDING PHYSICIAN: Jenna Mcdonald DO * (dictated by Yaz Bennett NP). CHIEF COMPLAINT: Hypertension, nausea and vomiting. HISTORY OF PRESENT ILLNESS: Mr. Loredo is a 56-year-old male with past medical history significant for hypertension, who presents to [facility] with a chief complaint of nausea and vomiting. The patient denies any recent cold symptoms. He reports chills, denies fever. He denies chest pain. He reports an occasional white phlegm production with cough. When nauseous, he reports shortness of breath. The patient reports that he vomited once yesterday and has vomited 4 times today and he continues to have persistent nausea. He also reports diarrhea over the last several days and prior to that some constipation and abdominal pain intermittently when he is nauseous. The patient denies dysuria. The patient decided to present to the emergency room for further evaluation of his symptoms. While in the emergency room, the patient was found to be hypothermic with a temperature of 95.3. The patient was also noted to be hypertensive with systolic blood pressures up into the 180s while in the emergency room. The patient received Reglan, Zofran and 2 L of saline while in the emergency room. Hospitalists were asked to evaluate the patient for admission. PAST MEDICAL HISTORY: Hypertension. PAST SURGICAL HISTORY: Status post ORIF of the right ring finger. HOME MEDICATIONS: Include hydrochlorothiazide 12.5 mg oral daily at bedtime. ALLERGIES: No known drug allergies. FAMILY HISTORY: The patient reports his father had a history of myocardial infarction in his 50s. He denies any family history of diabetes mellitus or cancer. SOCIAL HISTORY: The patient is a current smoker. Six months ago, he quit smoking cigarettes. Prior to that he smoked a pack a day since he was 26 years old. Over the last 6 months, he has been smoking 1 cigar daily. The patient reports drinking a 6 pack of beer 2 to 3 days a week. He reports smoking marijuana approximately every other day. 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 His , Keena, will be his surrogate decision maker in the event he is unable to make decisions for himself. REVIEW OF SYSTEMS: I performed a 14-point review of systems. All the pertinent positives and negatives are mentioned in the history of present illness. The remaining review of systems are negative. PHYSICAL EXAMINATION GENERAL APPEARANCE: The patient is alert, pleasant, and appears to be in no acute distress. VITAL SIGNS: Temperature 98.2, heart rate 59, respiratory rate 20, O2 sat 100% on room air, blood pressure 164/95. HEENT: Normocephalic, atraumatic. Pupils are equal and reactive to light. Extraocular movements are intact. RESPIRATORY: There is no accessory muscle use and the lungs are clear to auscultation bilaterally. CARDIOVASCULAR: Regular rate and rhythm. S1 and S2 present. There is no murmurs, rubs or gallops heard. ABDOMEN: Soft, nontender, nondistended. There are bowel sounds present x4. EXTREMITIES: There is no lower extremity edema. DP and PT pulses are 2+ and symmetric. MUSCULOSKELETAL: There is no clubbing or cyanosis noted. The patient exhibits good strength in all extremities. NEUROLOGIC: The patient is alert and oriented x4. Cranial nerves II through XII are grossly intact. PSYCHOLOGICAL: The patient is calm and cooperative. SKIN: There are no rashes or abnormalities seen. DIAGNOSTIC STUDIES/LABORATORY DATA: Sodium 134, potassium 4.0, chloride 101, CO2 25, BUN 15, creatinine 0.94, glucose 161. White blood cell count 15.5, hemoglobin 17.4, hematocrit 52, and platelet count 222,000. Chest x-ray from today. Radiologist's impression: No active cardiopulmonary disease. IMPRESSION: Mr. Loredo is a 56-year-old male with past medical history significant for hypertension who presents to the emergency room with complaints of intractable nausea and vomiting. He will be admitted as an observation for intractable nausea and vomiting. ASSESSMENT/PLAN: 1. Intractable nausea and vomiting. It appears the patient is already improving. This is similar to previous presentations when he was diagnosed with a gastritis and duodenitis. The patient had a full GI workup 2 years ago with no findings to show for why he was having these symptoms. The patient will have Zofran as needed. For now, we will hold on normal saline as he is hypertensive and has already received 2 L. He will have a clear liquid diet. I suspect this is likely cyclic vomiting syndrome related to his marijuana use. The patient has been encouraged to stop smoking marijuana. 2. Hypertension. The patient has been hypertensive. He takes his hydrochlorothiazide in the evening. We will continue him on his hydrochlorothiazide. 3. Fluids, electrolytes, and nutrition. Clear liquid diet. 4. Code status: Full code. 5. DVT prophylaxis. The patient is a low risk and will be encouraged to ambulate. 6. Disposition. Observation. TIME SPENT: The time spent for this admission was approximately 60 minutes, greater than half of that was spent with the patient discussing discharge plans , past medical history and the events leading up to his arrival today and performing a physical examination. The case has been reviewed with the attending, Dr. Mcdonald, who agrees with the plan of care. Reviewed by JABIER KHALIL 02/01/17 1828 [id number]/[facility] #: [id number] ABRAN
[2017-02-01] MEDS: Ondansetron INJ* 2 MG/ML VIAL IV PRN ×3 (03:58→16:38)
[2017-02-01 05:43] LABS: Hematocrit 49 % (42-52); Hemoglobin 16.3 g/dl (14.0-18.0); Mean Corpuscular HGB Conc 33 g/dl (31-36); Mean Corpuscular Hemoglobin 32 pg (27-31); Mean Corpuscular Volume 95 fL (80-94); Mean Platelet Volume 9 um3 (7.4-10.4); Red Blood Count 5.11 10^6/ul (4.0-5.4); Red Cell Distribution Width 14 % (10.5-15); White Blood Count 15.2 10^3/ul (3.5-10.8)
[2017-02-01] MEDS: Calcium Carbonate CHEW TAB* 500 MG (TUMS) PO PRN ×2 (09:02→19:28)
[2017-02-01] MEDS: PROCHLORPERAZINE INJ 5 MG/ML 2 ML VIAL IV PRN ×2 (12:38→21:54)
--- NOTE | 2017-02-01 14:33 | PN ---
Subjective Date of Service: 02/01/17 Interval History: Patient seen and examined at bedside. Denies chest pain, shortness of breath, diarrhea. Pt reports subjective fever, no documented fevers and chills. Pt also reports continued nausea that is improved with Zofran. Pt reports 1 episode of vomiting earlier today. Pt doesn't feel ready for discharge today. Family History: Unchanged from Admission Social History: Unchanged from Admission Past Medical History: Unchanged from Admission Objective Active Medications: Acetaminophen (Tylenol Tab*) 650 mg PO Q6H PRN Reason: PAIN Calcium Carbonate (Tums*) 500 mg PO Q4H PRN Reason: INDIGESTION Hydrochlorothiazide (Hydrodiuril Tab*) 12.5 mg PO BEDTIME NABILA Ondansetron HCl (Zofran Inj*) 4 mg IV Q6H PRN Reason: NAUSEA Prochlorperazine Edisylate (Compazine Inj*) 5 mg IV Q6H PRN Reason: NAUSEA/ VOMITING Zolpidem Tartrate (Ambien Tab*) 5 mg PO BEDTIME PRN Reason: INSOMNIA Vital Signs 01/31/17 01/31/17 01/31/17 15:28 15:45 17:18 Temperature 98.2 F 98.2 F 98.7 F Pulse Rate 59 59 78 Respiratory 20 20 Rate Blood Pressure 164/95 164/95 152/90 (mmHg) O2 Sat by Pulse 100 100 Oximetry 01/31/17 01/31/17 01/31/17 18:09 19:55 21:23 Temperature 98.1 F 99.6 F Pulse Rate 66 71 Respiratory 20 Rate Blood Pressure 154/79 159/100 (mmHg) O2 Sat by Pulse 99 Oximetry 01/31/17 02/01/17 02/01/17 23:22 04:04 04:08 Temperature 99.0 F 97.2 F Pulse Rate 73 66 Respiratory 16 20 Rate Blood Pressure 162/86 156/76 (mmHg) O2 Sat by Pulse 95 100 Oximetry 02/01/17 02/01/17 02/01/17 07:34 07:43 11:35 Temperature 98.3 F 98.2 F Pulse Rate 71 68 Respiratory 14 16 Rate Blood Pressure 179/124 160/94 130/71 (mmHg) O2 Sat by Pulse 100 95 Oximetry Oxygen Devices in Use Now: None Appearance: NAD, laying in bed Ears/Nose/Mouth/Throat: Mucous Membranes Moist Respiratory: Symmetrical Chest Expansion and Respiratory Effort, Clear to Auscultation Cardiovascular: NL Sounds; No Murmurs; No JVD, RRR Abdominal: NL Sounds; No Tenderness; No Distention Extremities: No Edema Skin: No Rash or Ulcers Neurological: Alert and Oriented x 3, NL Muscle Strength and Tone Lines/Tubes/Other Access: Clean, Dry and Intact Peripheral IV - site benign Nutrition: Taking PO's Result Diagrams: 02/01/17 05:20 01/31/17 12:00 Additional Lab and Data: Assess/Plan/Problems-Billing Assessment: Mr. Loredo is a 56 yo male with PMH significant for HTN and recurrent episodes of intractable vomiting who presented to the emergency room with complaints of intractable nausea and vomiting. - Patient Problems (1) Intractable nausea and vomiting Code(s): R11.2 - NAUSEA WITH VOMITING, UNSPECIFIED SNOMED Code(s): 936260025 Comment: - Suspect this is related to his marijuana use, could also represent a viral gastroenteritis - Pt declined trying ativan or Tigan for nausea - Continue Zofran and Compazine prn (2) Leukocytosis Code(s): D72.829 - ELEVATED WHITE BLOOD CELL COUNT, UNSPECIFIED SNOMED Code(s) : 804842508 Comment: - Unclear cause, suspect possible viral process - Afebrile - U/A negative - Blood cultures, no growth day 1 - Will follow WBCs (3) Hypertension Code(s): I10 - ESSENTIAL (PRIMARY) HYPERTENSION SNOMED Code(s): 11266055 Comment: - Pt hypertensive at times - Continue HCTZ, will increase dose if continues to be hypertensive (4) Tobacco abuse Current Visit: No Status: Acute Code(s): Z72.0 - TOBACCO USE SNOMED Code(s ): 484351736 Comment: - Counseled - Nicotine inhaler (5) DVT prophylaxis Code(s): PWT4266 - SNOMED Code(s): 507374629 Comment: - encourage ambulation (6) Full code status Code(s): Z78.9 - OTHER SPECIFIED HEALTH STATUS SNOMED Code(s): 821493451 Status and Disposition: OBV. Discharge to home when medically stable.
[2017-02-01] MEDS ORDERED: Mouth Piece, Nicotine* 1 EACH CARTRIDGE INH ONE (15:00)
[2017-02-01] MEDS ORDERED: Nicotine Inhaler* 10 MG AMP INH PRN (15:04)
[2017-02-01] MEDS: Hydrochlorothiazide TAB* 25 MG PO SCH (21:02)
[2017-02-01] MEDS: Zolpidem TAB* 5 MG PO PRN (21:02)
[2017-02-02] MEDS: Ondansetron INJ* 2 MG/ML VIAL IV PRN ×2 (01:00→08:28)
[2017-02-02] MEDS: PROCHLORPERAZINE INJ 5 MG/ML 2 ML VIAL IV PRN ×2 (03:47→11:25)
[2017-02-02 04:56] LABS: Hematocrit 48 % (42-52); Hemoglobin 16.1 g/dl (14.0-18.0); Mean Corpuscular HGB Conc 33 g/dl (31-36); Mean Corpuscular Hemoglobin 32 pg (27-31); Mean Corpuscular Volume 96 fL (80-94); Mean Platelet Volume 9 um3 (7.4-10.4); Red Blood Count 5.06 10^6/ul (4.0-5.4); Red Cell Distribution Width 14 % (10.5-15); White Blood Count 11.1 10^3/ul (3.5-10.8)
[2017-02-02 07:31] VITALS: BP 157/99
[2017-02-02] MEDS ORDERED: Hydrochlorothiazide TAB* 25 MG PO SCH (10:43)
--- NOTE | 2017-02-02 10:47 | PN ---
Subjective Date of Service: 02/02/17 Interval History: Mr. Loredo states that he does not feel great but that he has had no vomiting today. He does have some continued nausea. He denies chest pain, SOB, or abdominal pain. He is tolerating oral intake. Family History: Unchanged from Admission Social History: Unchanged from Admission Past Medical History: Unchanged from Admission Objective Active Medications: Acetaminophen (Tylenol Tab*) 650 mg PO Q6H PRN Calcium Carbonate (Tums*) 500 mg PO Q4H PRN Hydrochlorothiazide (Hydrodiuril Tab*) 12.5 mg PO BEDTIME NABILA Nicotine (Nicotine Inhaler*) 10 mg INH Q2H PRN Ondansetron HCl (Zofran Inj*) 4 mg IV Q6H PRN Prochlorperazine Edisylate (Compazine Inj*) 5 mg IV Q6H PRN Zolpidem Tartrate (Ambien Tab*) 5 mg PO BEDTIME PRN Vital Signs 02/01/17 02/01/17 02/01/17 11:35 12:24 15:16 Temperature 98.2 F 97.9 F 98.3 F Pulse Rate 68 70 55 Respiratory 16 15 16 Rate Blood Pressure 130/71 172/107 136/89 (mmHg) O2 Sat by Pulse 95 100 96 Oximetry 02/01/17 02/01/17 02/01/17 19:23 19:30 20:00 Temperature 97.8 F Pulse Rate 66 Respiratory 20 20 Rate Blood Pressure 172/106 168/90 (mmHg) O2 Sat by Pulse 100 Oximetry 02/01/17 02/02/17 02/02/17 23:16 00:00 03:29 Temperature 98.9 F 98.7 F Pulse Rate 74 68 Respiratory 17 17 Rate Blood Pressure 177/105 164/92 129/82 (mmHg) O2 Sat by Pulse 94 95 Oximetry 02/02/17 02/02/17 07:28 07:44 Temperature 98.9 F Pulse Rate 59 Respiratory 16 16 Rate Blood Pressure 157/99 (mmHg) O2 Sat by Pulse 100 Oximetry Oxygen Devices in Use Now: None Appearance: Male lying in bed in NAD Eyes: No Scleral Icterus Ears/Nose/Mouth/Throat: Mucous Membranes Moist Neck: Trachea Midline Respiratory: Symmetrical Chest Expansion and Respiratory Effort, Clear to Auscultation Cardiovascular: NL Sounds; No Murmurs; No JVD, No Edema Abdominal: NL Sounds; No Tenderness; No Distention Lymphatic: No Cervical Adenopathy Extremities: No Edema Skin: No Rash or Ulcers Neurological: Alert and Oriented x 3, NL Muscle Strength and Tone Nutrition: Taking PO's Result Diagrams: 02/02/17 04:34 01/31/17 12:00 Additional Lab and Data: Assess/Plan/Problems-Billing Assessment: Mr. Loredo is a 56 yo male with PMH significant for HTN and recurrent episodes of intractable vomiting who presented to the emergency room with complaints of intractable nausea and vomiting. - Patient Problems (1) Intractable nausea and vomiting Comment: - Suspect this is cyclic vomiting syndrome. Has had EGD September 2016 showing gastritis and duodenitis only - Continue Zofran and Compazine prn. - Recommend follow up with PCP and Gastroenterology. (2) Leukocytosis Comment: - Unclear cause, suspect possible viral process vs stress response. - Afebrile. U/A negative. Blood cultures, no growth day. (3) Hypertension Comment: - SBP 160-170s. - Increase hctz, follow up with PCP. (4) Tobacco abuse Comment: - Counseled - Nicotine inhaler (5) DVT prophylaxis Comment: - encourage ambulation (6) Full code status Status and Disposition: OBV. Discharge to home.
[2017-02-02] MEDS: Calcium Carbonate CHEW TAB* 500 MG (TUMS) PO PRN (11:26)
--- NOTE | 2017-02-03 02:28 | DS ---
CC: Dr. Woo * HOSPITAL MEDICINE DISCHARGE SUMMARY: DATE OF ADMISSION: 01/31/17 DATE OF DISCHARGE: 02/02/17 PRIMARY CARE PHYSICIAN: Dr. Woo. ATTENDING PHYSICIAN: Mehdi Coley MD * (dictation provided by Mahi Deutsch NP ). PRIMARY DIAGNOSIS: Nausea and vomiting with suspected cyclic vomiting syndrome. SECONDARY DIAGNOSES: Hypertension and history of open reduction internal fixation of the right ring finger. MEDICATION AT THE TIME OF DISCHARGE: Hydrochlorothiazide 25 mg p.o. at bedtime (new dose). HISTORY OF PRESENT ILLNESS: Mr. Loredo is a 56-year-old male with past medical history of episodes of nausea and vomiting intermittently, who presented to the hospital again with uncontrolled nausea and vomiting on 01/31/17. Please see the dictated H and P from Yaz Walsh for complete details. In brief, the patient reported similar symptoms with admission to the hospital 2 times in 2015 and earlier in September of this year. He had had consultation with Dr. Becker in September and had an upper endoscopy which at that time showed gastritis and duodenitis, but there was concern that his nausea and vomiting was related to cannabis use. Mr. Loredo states that he has cut back on his marijuana use and he is very clear in his own mind that marijuana is not contributing to his nausea and vomiting. Regardless, he was treated with some IV fluids and antiemetics and he is feeling better today. He is still somewhat nauseous but he has not been vomiting. He is able to keep down oral intake. I suggested to Mr. Loredo that he likely has cyclic vomiting syndrome and I provided him with some information about that to take home with him to read. I suggested that he could try supplements of l-carnitine and coenzyme Q10, which have been recommended in a small study as supplements that could help with his symptoms. I have also suggested he could consider using an antidepressant, though he is not interested in doing that. Mr. Loredo is medically stable for discharge to home and follow up with Dr. Woo. I will note during this hospitalization the patient's blood pressure was elevated systolically to the 170s and I have increased his hydrochlorothiazide from 12.5 to 25 mg daily. DISPOSITION: Home. DIET: Regular. ACTIVITY: As tolerated. FOLLOWUP PLANS: Please follow up with Dr. Woo regarding question of cyclic vomiting syndrome and management of hypertension. MAHI DEUTSCH NP [id number]/[facility] #: [id number] ABRAN
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
== END 2017-02-02 13:35 | disposition home or self-care (01) ==
LOC: ED 09:31 → MED 14:33
PROVIDERS: ADMIT Internal Medicine; ATTEND Internal Medicine
DX: R11.2 Nausea with vomiting, unspecified (principal); I10 Essential (primary) hypertension; D72.829 Elevated white blood cell count, unspecified; R68.83 Chills (without fever); R06.02 Shortness of breath; R19.7 Diarrhea, unspecified; F12.10 Cannabis abuse, uncomplicated; F17.200 Nicotine dependence, unspecified, uncomplicated
CPT/HCPCS: 36415; 71010; 80053; 81003; 82150; 82550; 83605; 83690; 83735; 84439; 84443; 84484; 85025; 86140; 87040; 96361; 96374; 96375; 96376; 99284; 99406; A9270-GY; G0378; J0780; J2405

== ENCOUNTER 2017-02-03 07:27 | Emergency (ER) | payer OTHER ==
[2017-02-03] MEDS ORDERED: Pantoprazole IV* 40 MG IV ONE (07:52)
[2017-02-03] MEDS ORDERED: Ondansetron INJ* 2 MG/ML VIAL IV ONE (07:52)
[2017-02-03] MEDS ORDERED: diPHENhydraMINE IV* 50 MG/ML 1 ml VIAL (BENADRYL) IV ONE (07:55)
[2017-02-03] MEDS: NS 0.9% 1000 ML* 2,000 ML IV ONE ×2 (08:29→08:32)
[2017-02-03 08:46] LABS: Hematocrit 50 % (42-52); Mean Corpuscular HGB Conc 34 g/dl (31-36); Mean Corpuscular Hemoglobin 32 pg (27-31); Mean Corpuscular Volume 93 fL (80-94); Mean Platelet Volume 9 um3 (7.4-10.4); Red Blood Count 5.36 10^6/ul (4.0-5.4); Red Cell Distribution Width 14 % (10.5-15); White Blood Count 12.6 10^3/ul (3.5-10.8)
--- NOTE | 2017-02-03 08:54 | RAD ---
HISTORY: Nausea and vomiting COMPARISONS: March 24, 2012 VIEWS: Frontal and left lateral decubitus of the abdomen FINDINGS: BOWEL: There is a nonobstructive bowel gas pattern. There is a moderate amount of stool within the colon. CALCULI: There are no abnormal calculi. BONES AND SOFT TISSUES: Mild degenerative changes are noted OTHER FINDINGS: The lung bases are clear. There is no subphrenic gas. IMPRESSION: NONOBSTRUCTIVE BOWEL GAS PATTERN.
[2017-02-03] MEDS ORDERED: hydrALAZINE IV* 20 MG/ML VIAL IV SLOW PU ONE (09:07)
[2017-02-03 09:09] LABS: ALT 16 U/L (7-52); AST 15 U/L (13-39); Albumin 4.2 g/dL (3.2-5.2); Alkaline Phosphatase 50 U/L (34-104); Amylase 61 U/L (29-103); Anion Gap 10 mmol/L (2-11); BUN/Creatinine Ratio 15.7 (8-20); Blood Urea Nitrogen 14 mg/dL (6-24); C Reactive Protein < 1.00 mg/L (< 5.00); CO2 Carbon Dioxide 25 mmol/L (22-32); Calcium 9.4 mg/dL (8.6-10.3); Chloride 93 mmol/L (101-111); Creatine Kinase 57 U/L (10-223); EGFR African American 113.7 (>60); EGFR Non-African American 88.4 (>60); Globulin 2.8 g/dL (2-4); Glucose 131 mg/dL (70-100); Lipase 81 U/L (11.0-82.0); Magnesium 1.9 mg/dL (1.9-2.7); Potassium 3.1 mmol/L (3.5-5.0); Sodium 128 mmol/L (133-145)
[2017-02-03 10:06] LABS: Urine Bilirubin Negative (Negative); Urine Glucose Negative (Negative); Urine Nitrite Negative (Negative)
[2017-02-03] MEDS ORDERED: Potassium Chlor TAB* 20 MEQ TAB.ER PO ONE (10:54)
[2017-02-03] MEDS ORDERED: LORazepam TAB(*) 0.5 MG PO ONE (10:58)
[2017-02-03 12:21] VITALS: BP 157/91
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
== END 2017-02-03 12:21 | disposition home or self-care (01) ==
LOC: ED 07:27
DX: R10.9 Unspecified abdominal pain (principal); G43.A0 Cyclical vomiting, in migraine, not intractable; R00.2 Palpitations; R11.0 Nausea; F17.210 Nicotine dependence, cigarettes, uncomplicated
CPT/HCPCS: 36415; 74020; 80053; 81003; 82150; 82550; 83605; 83690; 83735; 85025; 86140; 93005; 96374; 96375; 99283; A9270-GY; J0360; J1200; J2405

== ENCOUNTER → 2017-02-08 12:57 | Emergency (ER) | payer SELFPAY ==
[2017-02-08 15:17] VITALS: BP 0/0
== END | disposition left against medical advice (07) ==
LOC: ED 12:57
DX: Z48.02 Encounter for removal of sutures (principal); Z53.21 Procedure and treatment not carried out due to patient leaving prior to being seen by health care provider

== ENCOUNTER 2017-02-09 08:36 | Emergency (ER) | payer SELFPAY ==
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
[2017-02-09 08:57] VITALS: BP 128/74
== END 2017-02-09 08:56 | disposition home or self-care (01) ==
LOC: ED 08:36
DX: S61.210D Laceration without foreign body of right index finger without damage to nail, subsequent encounter (principal); X58.XXXD Exposure to other specified factors, subsequent encounter; Y92.9 Unspecified place or not applicable; Y99.0 Civilian activity done for income or pay; I10 Essential (primary) hypertension; K21.9 Gastro-esophageal reflux disease without esophagitis; F12.90 Cannabis use, unspecified, uncomplicated; F17.210 Nicotine dependence, cigarettes, uncomplicated
CPT/HCPCS: 99282

== ENCOUNTER 2019-08-26 08:15 | Observation (INO) | payer OTHER ==
--- OUTSIDE RECORDS SUMMARY | 2019-08-26 08:23 | XMS REPORT | Continuity of Care Document ---
:1960 External Reference #:[id number] Author Name James De La Cruz DO (transmitted by agent of provider Kat Emmanuel) Address [address] [place] [address], [place] [address] Care Team Providers Name Role Phone Conrad Woo MD - Family Care Team Information Label Remover [phone] [facility] - Care Team Information Label Remover Emergency Care Problems Description No Information Available Social History Type Date Description Comments Sex Unknown ETOH Use Currently consumes alcohol Tobacco Use Start: Unknown Patient is a current smoker, smokes every day Smoking Status Reviewed: 11/23/17 Patient is a current smoker, smokes every day Exercise Type/Frequency Exercises regularly Allergies, Adverse Reactions, Alerts Description No Known Drug Allergies Medications Active Medications SIG Qnty Indications Ordering Date Provider Hydrochlorothiazide 1 by mouth Unknown 12.5mg Capsules every day Chlorhexidine Gluconate Hawk Reyes, 0.12% DDS Solution Immunizations Description No Information Available Vital Signs Date Vital Result Comment 11/23/2017 8:09am Height 69 inches 5'9" Weight 157.00 lb BP Systolic 111 mmHg BP Diastolic 69 mmHg Respiratory Rate 18 /min Pain Level 3 BMI (Body Mass Index) 23.2 kg/m2 01/06/2017 8:36am Height 69 inches 5'9" Weight 170.00 lb Heart Rate 64 /min BP Systolic 140 mmHg BP Diastolic 92 mmHg Respiratory Rate 16 /min Body Temperature 96.7 F Pain Level 0 BMI (Body Mass Index) 25.1 kg/m2 Results Description No Information Available Procedures Description No Information Available Medical Devices Description No Information Available Encounters Description No Information Available Assessments Description No Information Available Plan of Treatment 11/23/2017 - Maia Jauregui M.D.[id number] Displaced fracture of proximal phalanx of right ring finger, subsequent encounter for fracture with routine healingFollow up:Follow up: As needed Functional Status Description No Information Available Mental Status Description No Information Available Referrals Description No Information Available
[2019-08-26] MEDS ORDERED: Metoclopramide IV* 5 MG/ML 2 ML VIAL IV ONE (08:37)
[2019-08-26] MEDS ORDERED: NS 0.9% 1000 ML** 1,000 ML IV ONE ×3 (08:37→10:36)
--- NOTE | 2019-08-26 08:37 | ED ---
GI/ HPI - HPI Summary HPI Summary: 59 year old male presents to the ED with a chief complaint of nausea and vomiting starting 0430 yesterday. He reports myalgia, chills, and cramping abdominal pain. He reports that he has had no appetite. Patient has not urinated for 15 hours, even though he has tried to stayed hydrated. History of GERD, cyclic vomiting in remote past. No recent cough or fever. +Diarrhea. Tried zofran at home without effect. - History of Current Complaint Chief Complaint: EDFluSymptoms Time Seen by Provider: 08/26/19 08:22 Stated Complaint: FLU SYMPTOMS PER PT Hx Obtained From: Patient Onset/Duration: Started Days Ago Timing: Constant Pain Intensity: 0 Location of Pain: Diffuse - Additional Pertinent History Primary Care Physician: NIYA - Allergy/Home Medications Allergies/Adverse Reactions: Allergies Allergy/AdvReac Type Severity Reaction Status Date / Time No Known Allergies Allergy Verified 08/26/19 08:20 Home Medications: Home Medications Aspirin [Aspirin EC] 2 tab PO DAILY PRN 08/26/19 [History Confirmed 08/26/19] PMH/Surg Hx/FS Hx/Imm Hx Endocrine/Hematology History: Denies: Hx Diabetes Cardiovascular History: Reports: Hx Hypertension - on meds Denies: Hx Congestive Heart Failure - only family hx, Other Cardiovascular Problems/Disorders Respiratory History: Denies: Other Respiratory Problems/Disorders GI History: Reports: Hx Gastroesophageal Reflux Disease Denies: Other GI Disorders History: Denies: Hx Renal Disease Musculoskeletal History: Denies: Other Musculoskeletal History Sensory History: Reports: Hx Contacts or Glasses - glasses Denies: Hx Hearing Aid Opthamlomology History: Reports: Hx Contacts or Glasses - glasses Neurological History: Denies: Other Neuro Impairments/Disorders - Surgical History Surgery Procedure, Year, and Place: trauma related intestinal surgery, benign Hx Anesthesia Reactions: No - Immunization History Date of Tetanus Vaccine: unk Date of Influenza Vaccine: unk Infectious Disease History: No Infectious Disease History: Denies: Traveled Outside the [place] in Last 30 Days - Family History Known Family History: Positive: None - non-contributory, Cardiac Disease - CHF - Social History Alcohol Use: Weekly Alcohol Amount: 2 pints per week Hx Substance Use: Yes Substance Use Type: Reports: Marijuana Substance Use Comment - Amount & Last Used: 04/19/17 Hx Tobacco Use: Yes Smoking Status (MU): Former Smoker Type: Cigarettes Amount Used/How Often: pack a day Length of Time of Smoking/Using Tobacco: 45 years Have You Smoked in the Last Year: Yes Review of Systems Positive: Chills Positive: Abdominal Pain, Vomiting, Nausea Positive: Myalgia All Other Systems Reviewed And Are Negative: Yes Physical Exam - Summary Physical Exam Summary: Constitutional: Ill appearing. NAD Skin: Warm, Dry HENT: Normocephalic; Atraumatic, dry MM Eyes: Conjunctiva normal Neck: Musculoskeletal ROM normal neck. (-) JVD, (-) Stridor, (-) Nuchal rigidity Cardio: Rhythm regular, rate tachycardic, Heart sounds normal; Intact distal pulses; Radial pulses are 2+ and symmetric. (-) Murmur Pulmonary/Chest wall: Effort normal. (-) Respiratory distress, (-) Wheezes, (-) Rales Abd: Soft, (-) tenderness, (-) Distension, (-) Guarding, (-) Rebound Musculoskeletal: (-) Edema Lymph: (-) Cervical adenopathy Neuro: Alert, Oriented x3 Psych: Mood and affect Normal Triage Information Reviewed: Yes Vital Signs On Initial Exam: Initial Vitals Temp Pulse Resp BP Pulse Ox 99.2 F 105 22 134/115 96 08/26/19 08:18 08/26/19 08:18 08/26/19 08:18 08/26/19 08:18 08/26/19 08:18 Vital Signs Reviewed: Yes Procedures - Sedation Patient Received Moderate/Deep Sedation with Procedure: No Diagnostics - Vital Signs Vital Signs Temp Pulse Resp BP Pulse Ox 08/26/19 08:18 99.2 F 105 22 134/115 96 - Laboratory Result Diagrams: 08/26/19 08:47 08/26/19 08:47 Lab Statement: Any lab studies that have been ordered have been reviewed, and results considered in the medical decision making process. - Radiology CXR Radiology Interpretation Completed By: Radiologist Summary of Radiographic Findings: Hyperinflated lungs with no acute cardiopulmonary process by radiograph. An ED physician has reviewed this XR. - CT APCT CT Interpretation Completed By: Radiologist Summary of CT Findings: IMPRESSION: 1. NO CLEAR ETIOLOGY FOR THE PATIENT'S SYMPTOMS. 2. DIVERTICULOSIS. 3. CORONARY ARTERY DISEASE. 4. PROSTAMEGALY ( 6.4 CM). An ED physician has reviewed this report. GIGU Course/Dx - Course Course Of Treatment: 59 y/o male w hx cyclic vomiting in past p/w multiple episodes of emesis, diarrhea and feeling unwell. - on exam dry MM, abd soft. Multiple episodes of vomiting room. Labs notable for elevated Cr 4.9 from baseline normal. VBG 7.5/ likely metabolic alkalosis 2/2 vomiting. - also elevated WBC and H/H likely in setting of dehydration. - CXR neg for acute process, CT a/p w/o contrast obtained w/o significant abnormality. - given 3 L IVF, covered broadly for infectious source w vanc/zosyn given new Cr elevated, LA and WBC. Unknown source infection (could also be 2/2 dehydration) - Diagnoses Provider Diagnoses: Nausea & vomiting, Dehydration, Acute kidney injury, Lactic acid acidosis - Physician Notifications Discussed Care Of Patient With: Kenzie Saldivar - Hospitalist Time Discussed With Above Provider: 10:38 Instructed by Provider To: Admit As Observation - I spoke to Dr. Saldivar, Hospitalist, about the patient's condition and she recommends admission as observation. Admit/Transition Orders Completed By ED Provider: Yes Discharge ED - Sign-Out/Discharge Documenting (check all that apply): Patient Departure - admit - Discharge Plan Condition: Stable Disposition: ADMITTED TO [facility] - Billing Disposition and Condition Condition: STABLE Disposition: Admitted to [facility] - Attestation Statements Document Initiated by Scribe: Yes Documenting Scribe: Valeriano Shah Provider For Whom Scribe is Documenting (Include Credential): Tyson Ley MD Scribe Attestation: Valeriano Queen, scribed for Tyson Ley MD on 08/26/19 at 1144. Scribe Documentation Reviewed: Yes Provider Attestation: The documentation as recorded by the Valeriano vides accurately reflects the service I personally performed and the decisions made by , Tyson Ley MD Status of Scribe Document: Viewed
[2019-08-26 08:58] LABS: Influenza A Molecular Negative (Negative); Influenza B Molecular Negative (Negative)
[2019-08-26 09:07] LABS: ABS Basophils 0.1 10^3/ul (0-0.2); ABS Lymphocytes 2.2 10^3/ul (1.0-4.8); ABS Monocytes 2.1 10^3/ul (0-0.8); ABS Neutrophils 13.2 10^3/ul (1.5-7.7); Eosinophil % 0.1 %; Hematocrit 57 % (42-52); Lymphocyte % 12.3 %; Mean Corpuscular HGB Conc 35 g/dL (31-36); Mean Corpuscular Hemoglobin 32 pg (27-31); Mean Corpuscular Volume 92 fL (80-94); Nucleated Red Blood Cells % 0.1; Platelet Count 251 10^3/uL (150-450); Red Blood Count 6.16 10^6 /uL (4.18-5.48); Red Cell Distribution Width 15 % (10-15); White Blood Count 17.5 10^3/uL (3.5-10.8)
[2019-08-26 09:15] LABS: Albumin 5.4 g/dL (3.2-5.2); Albumin/Globulin Ratio 1.4 (1-3); BUN/Creatinine Ratio 8.4 (8-20); Calcium 11.1 mg/dL (8.6-10.3); EGFR African American 14.8 (>60); EGFR Non-African American 12.2 (>60); Magnesium 2.2 mg/dL (1.9-2.7); Potassium 4.2 mmol/L (3.5-5.0); Total Bilirubin 1.4 mg/dL (0.2-1.0); Total Protein 9.4 g/dL (6.4-8.9)
[2019-08-26] MEDS ORDERED: Piperacillin/Tazobac ADVAN(*) 3.375 GM in NS 0.9% 100 ML* 100 ML IVPB ONE (09:26)
[2019-08-26] MEDS ORDERED: Vancomycin 1500 MG IV - x ONCE IVPB ONE ×2 (10:00)
[2019-08-26] MEDS ORDERED: Vancomycin(*) 1,000 MG VIAL IVPB SCH (10:00)
[2019-08-26] MEDS ORDERED: NS 0.9% 1000 ML** 3,000 ML IV ONE (10:55)
[2019-08-26] MEDS ORDERED: Acetaminophen TAB* 325 MG PO PRN (11:23)
[2019-08-26] MEDS ORDERED: PROCHLORPERAZINE INJ 5 MG/ML 2 ML VIAL IV PRN (11:23)
[2019-08-26] MEDS ORDERED: Thiamine INJ* 100 MG/ML 2 ML VIAL IM ONE (12:57)
[2019-08-26] MEDS ORDERED: LORazepam TAB(*) 1 MG PO SCH (13:00)
[2019-08-26] MEDS: Heparin VIAL(*) 5000 UNITS/ML VIAL (FIVE THOUSAND) SUBCUT SCH ×2 (13:48→22:50)
[2019-08-26 14:38] LABS: Urine Appearance Turbid; Urine Bilirubin Negative (Negative); Urine Blood 2+ (Negative); Urine Color Yellow; Urine Glucose Negative (Negative); Urine Ketones Negative (Negative); Urine Nitrite Negative (Negative); Urine Protein 1+(30 mg/dL) (Negative); Urine Specific Gravity 1.023 (1.010-1.030); Urine Urobilinogen Negative (Negative)
[2019-08-26 14:53] LABS: Urine Bacteria 1+ (Absent); Urine Granular Casts Present (Absent); Urine Red Blood Cell Absent (Absent); Urine Squamous Epithelial Cell Present (Absent); Urine White Blood Cell Trace(0-5/hpf) (Absent)
--- NOTE | 2019-08-26 15:11 | HP ---
CC: Dr. Woo * HISTORY AND PHYSICAL: DATE OF ADMISSION: 08/26/19 TIME OF EVALUATION: 10:50 a.m. PRIMARY CARE PROVIDER: Dr. Woo. CHIEF COMPLAINT: "I couldn't stop vomiting." HISTORY OF PRESENT ILLNESS: Mr. Loredo is a 59-year-old male with a past medical history of hypertension who presents to the emergency room with complaints of multiple episodes of nausea and vomiting. The patient states he was in his usual state of health until 08/23/19 when he woke up around 4:30 a.m. with nausea and diaphoresis. The patient states that he drenched his bedsheet and was able to get to the bathroom and since then has had recurrent episodes of vomiting. He states that for the past 48 hours, he has not been able to eat or drink anything. Initially, he thought that he had the flu as he was having some chills, but he had no fever and did not develop any other symptoms. He denies any sick contacts. He denies eating any different foods. He has no chest pain, palpitations, diarrhea or urinary complaints, cough or shortness of breath. He had similar presentation in January 2017 with recurrent nausea and vomiting with no precipitating factors. In 2013, there was also similar presentation. In 2016, he had an upper endoscopy that showed gastritis and duodenitis, but no obvious etiology for his nausea and vomiting and GI impression at this time was that the patient could have marijuana hyperemesis. PAST MEDICAL HISTORY: 1. Hypertension. 2. Two prior episodes of recurrent nausea and vomiting, felt to be secondary to cannabinoid hyperemesis syndrome. PAST SURGICAL HISTORY: Status post ORIF of the right 4th finger. MEDICATION LIST: The patient is not on any medications at this time. ALLERGIES: No known drug allergies. FAMILY HISTORY: His father had a history of an OH in his 50s. SOCIAL HISTORY: The patient states that he was a smoker of cigarettes a pack a day from his 20s until 2 years ago. He now smokes 1 to 3 cigars a day depending on how stressed he is. In the past, he was drinking 6 pack of beer 2 to 3 days a week. He states that he now drinks 3 beers every night. REVIEW OF SYSTEMS: A 14-point review of systems was performed, and all the pertinent negatives and positive findings are in the HPI. PHYSICAL EXAMINATION GENERAL: The patient is a pleasant, elderly gentleman, appears older than stated age, sitting up in the ED stretcher, in no acute distress. VITAL SIGNS: Temperature 99.3, heart rate is 69, respiratory rate is 20, oxygen saturation 95% on room air, blood pressure is 143/99. HEENT: Pupils are equal. The patient has very dry mucous membranes with sunken eyes. CHEST: Breath sounds bilaterally diminished with no added sounds. CVS: Normal S1, S2. Regular rate and rhythm. ABDOMEN: Soft, nontender, nondistended. Bowel sounds present. EXTREMITIES: No edema. NEURO: He is alert and oriented x3. Able to move all 4 extremities. DIAGNOSTIC STUDIES/LAB DATA: The patient had a CBC that showed a WBC of 17.5, hemoglobin 20, hematocrit 57 with platelets 251, 75% neutrophils. VBG showed a pH of 7.54, pCO2 of 31, pO2 of 59, bicarb of 28.2, oxygen saturation of 92%. Chemistry showed a sodium of 132, potassium of 4.2, chloride of 85, bicarb of 25 , anion gap of 22, BUN of 41, creatinine of 4.9, glucose of 172. Lactic acid is 2.9. Calcium is 11.1. Magnesium 2.2. LFTs showed a total bilirubin of 1.4 , total protein was 9.4, albumin 5.4. Influenza A and B were negative. Chest x-ray showed hyperinflated lungs with no acute cardiopulmonary process. CT of the abdomen and pelvis showed no clear etiology for the patient's symptoms. Diverticulosis, evidence of coronary artery disease with calcifications and enlarged prostate. ASSESSMENT AND PLAN: Mr. Loredo is a 59-year-old male with a past medical history of hypertension, alcohol use, daily marijuana use, who presented to the emergency room with recurrent nausea and vomiting and severe dehydration. 1. Severe dehydration. The patient's electrolyte abnormalities all are suggestive of hemoconcentration. He will receive aggressive fluid resuscitation and we will repeat his labs. His acute kidney injury appears to be prerenal in the setting of recurrent nausea and vomiting. There is an apparent infectious etiology and considering his prior episodes and workup, I suspect this is likely secondary to cannabinoid hyperemesis syndrome, especially considering his improvement with hot bath. The patient will receive symptomatic treatment and we will continue to monitor. He was advised about my impression that the etiology of his symptoms is his cannabis use, but the patient disagrees. He states that he has been smoking marijuana for many, many years and never had any trouble. 2. Alcohol use. The patient now endorses drinking at least 3 beers a day, so he will be placed on a [place] protocol. 3. Hypertension. The patient has been off medications. He states that he was seen by his primary care provider last year for a physical and was told that "everything was great" and did not need medications anymore. We tried to obtain records from Dr. Woo's office. 4. DVT prophylaxis. The patient has a score of 2 on the DVT Prophylaxis Risk Assessment Guide and he will be started on subcutaneous heparin. 5. Code status is full. TIME SPENT: Approximately 50 minutes was spent with the patient interview, medical records review, physical examination to complete this admission, more than half of this time was spent [id number] with the patient and coordination of care. [id number]/[facility] #: [id number] ABRAN
[2019-08-26 15:19] LABS: ABS Lymphocytes 1.2 10^3/ul (1.0-4.8); ABS Monocytes 1.1 10^3/ul (0-0.8); ABS Neutrophils 8.2 10^3/ul (1.5-7.7); Eosinophil % 0.2 %; Hematocrit 43 % (42-52); Lymphocyte % 11.3 %; Mean Corpuscular HGB Conc 35 g/dL (31-36); Mean Corpuscular Hemoglobin 33 pg (27-31); Mean Corpuscular Volume 95 fL (80-94); Mean Platelet Volume 8.8 fL (7.4-10.4); Platelet Count 163 10^3/uL (150-450); Red Blood Count 4.59 10^6 /uL (4.18-5.48); Red Cell Distribution Width 15 % (10-15); White Blood Count 10.6 10^3/uL (3.5-10.8)
[2019-08-26 15:35] LABS: Calcium 7.6 mg/dL (8.6-10.3); EGFR Non-African American 25.6 (>60); Magnesium 1.7 mg/dL (1.9-2.7)
[2019-08-26] MEDS ORDERED: Magnesium Sulfate 2 GM IV* 2 GM/50 ML BAG IVPB ONE (15:41)
[2019-08-26] MEDS: NS 0.9% 1000 ML** 1,000 ML IV SCH ×2 (16:38→23:01)
[2019-08-27 05:54] LABS: ABS Eosinophils 0.1 10^3/ul (0-0.6); Eosinophil % 1.1 %; Hematocrit 41 % (42-52); Lymphocyte % 22.2 %; Mean Corpuscular HGB Conc 34 g/dL (31-36); Mean Corpuscular Hemoglobin 32 pg (27-31); Mean Corpuscular Volume 94 fL (80-94); Mean Platelet Volume 9.1 fL (7.4-10.4); Platelet Count 148 10^3/uL (150-450); Red Blood Count 4.34 10^6 /uL (4.18-5.48); Red Cell Distribution Width 15 % (10-15); White Blood Count 9.1 10^3/uL (3.5-10.8)
[2019-08-27 06:10] LABS: Calcium 7.8 mg/dL (8.6-10.3); EGFR African American 104.5 (>60); EGFR Non-African American 86.4 (>60); Magnesium 2.1 mg/dL (1.9-2.7); Potassium 3.8 mmol/L (3.5-5.0)
[2019-08-27] MEDS: NS 0.9% 1000 ML** 1,000 ML IV SCH (06:43)
[2019-08-27] MEDS: Heparin VIAL(*) 5000 UNITS/ML VIAL (FIVE THOUSAND) SUBCUT SCH (07:11)
[2019-08-27] MEDS ORDERED: Multivitamins/Minerals TAB PO SCH (09:00)
[2019-08-27] MEDS ORDERED: Thiamine TAB* 100 MG TAB PO SCH (09:00)
[2019-08-27] MEDS ORDERED: Folic Acid TAB* 1 MG PO SCH (09:00)
[2019-08-27 12:10] VITALS: BP 147/89
[2019-08-27] MEDS ORDERED: Aspirin 81 mg CHEW TAB* 81 MG TAB.CHEW PO ONE (12:55)
[2019-08-27 13:14] LABS: HDL Cholesterol 35.1 mg/dL
--- NOTE | 2019-08-27 23:56 | DS ---
CC: Dr. Woo.* DISCHARGE SUMMARY: DATE OF ADMISSION: 08/26/19. DATE OF DISCHARGE: 08/27/19. PROVIDER: Elyse Dial NP. ATTENDING PHYSICIAN: Dr. Yanez * (dictated by Elyse Dial NP). PRIMARY CARE PHYSICIAN: Dr. Woo. CONSULTING PHYSICIAN: None. PRIMARY DIAGNOSES: 1. Severe dehydration. 2. Acute kidney injury, which is resolved. 3. Hyperlipidemia. 4. ETOH use. SECONDARY DIAGNOSIS: Hypertension. PROCEDURES: None. DIAGNOSTIC STUDIES: Chest x-ray showed hyperinflated lungs with no acute cardiopulmonary process by radiograph. CT of abdomen and pelvis without contrast showed no clear etiology for the patient's symptoms, diverticulosis, coronary artery disease and prostatomegaly 6.4 cm. PERTINENT LABORATORY DATA: Calcium 7.8, triglycerides 164, cholesterol 176, LDL cholesterol 108, HDL cholesterol 35.1, hematocrit 41, MCH 32, platelet count 148. Urine had 1+ protein, 2+ blood, present squamous epithelial cells, present calcium oxylate crystal, 1+ urine bacteria, hyaline cast present, granular cast present. Urine culture showed no growth. HISTORY OF PRESENT ILLNESS/HOSPITAL COURSE: This is a 59-year-old male with a past medical history significant for hypertension and 2 previous episodes of recurrent nausea and vomiting, who presented to the emergency room on 08/26/19 after reports of multiple episodes of nausea and vomiting. Originally, he stated he woke up on 08/23/19 with nausea and diaphoresis to the point he drenched his bedsheets and since then has had recurrent episodes of vomiting. For the 48 hours prior to admission, he had been unable to eat or drink anything and had reported having chills but no fever and had no other symptoms, had no sick contacts. Denied eating any different foods or changes in medications. However, he does report using cannabis and has done so for many many years without trouble according to the patient. He also endorses drinking about 3 beers a day and was placed on [facility] protocol during his stay. In the emergency room, he received a total of 6000 mL of IV fluid, Reglan, magnesium, thiamine injection, vancomycin and Zosyn. At that time, his sodium was low, 132 and his creatinine was 4.90 and lactic acid of 2.9. His white blood cell count also initially was 17.5, RBC 6.16, hemoglobin 20.0 and hematocrit 57. All this suggestive of hemoconcentration secondary to severe dehydration, later in the day when the labs were rechecked, creatinine had decreased to 2.58 and lactic acid had decreased to 1.5. He was feeling better, however, magnesium was then found to be 1.7, which was repleted with a magnesium IV at that time. During the overnight, he did not require any further antiemetics. He stated that he began to feel better. In the a.m. of today, he was able to eat breakfast. His creatinine had come back down to baseline. Vital signs were stable. However, did notice that throughout his stay, his blood pressure was between 140s to 160s. At this time, he was not interested in any interventions though I would ask that he follow up with Dr. Woo and he had previously been on medications for high blood pressure and I believe that he needs to be restarted on it again and this morning he was also in good spirits, but feeling anxious to go home. He never scored on the W[facility] protocol throughout the night and was able to tolerate foods and liquids without difficulty. REVIEW OF SYSTEMS: Pertinent positives include nausea and vomiting the previous day though none today. Pertinent negatives include no lightheadedness , dizziness, chest pain, palpitations, shortness of breath, abdominal pain, nausea, vomiting, or issues moving his bowel or bladder. PHYSICAL EXAMINATION: General: This is a well-developed gentleman seen standing up in the room, in no acute distress. Vital Signs: 98.5 Fahrenheit, 48 pulse, 16 respirations, 97% oxygen on room air, 147/89 blood pressure. HEENT : Conjunctivae pink and moist. PERRLA. EOM's intact. Oropharynx clear. Mucous membranes moist. Neck is supple. Cardiac: S1, S2, present. Heart rate regular. No murmurs, gallops or rubs appreciated. Respiratory: Lung sounds clear throughout bilaterally on room air, diminished in the bases. Abdomen: Soft, nontender, nondistended with positive bowel sounds x4. Musculoskeletal: No clubbing or cyanosis of the digits. Able to move all extremities, 5/5 strength in bilateral upper and lower. Neurologic: Sensation intact to light touch. No focal deficits appreciated. Skin: Intact, no rashes or lesions noted. Psych: He is alert and oriented x3. Thought content organized. DISCHARGE PLAN: Diet is to be of regular diet. No activity restrictions. He is to return to the emergency room should he experience any shortness of breath , chest pain or nausea, vomiting that he is unable to control at home. PLAN FOR EACH CONDITION: 1. Severe dehydration. The patient has been well hydrated with IV fluids in the hospital. I encouraged that he continue on with oral hydration at home, drinking at least 6 to 8 glasses of non-alcoholic liquid at home each day. 2. Acute kidney injury, which is now resolved. Again, this is likely secondary to dehydration due to vomiting though nausea has since resolved. Does not require any further monitoring. 3. Alcohol use. He reports drinking 3 beers a day. He did not show any signs of acute withdrawal during his short time with us. I do recommend that he decrease his alcohol intake. Some study showed there is no safe level of alcohol intake for anyone. Other studies will say that a male can have up to 2 drinks a day. I suggest alternating of beer with carbonated beverage such seltzer or soda to help decrease intake. 4. Hypertension. Again his systolic blood pressures run between 140s and 160s , which is higher than the target of 130/90. I suggest that he follow up with his PCP and ordered to go back on medications as he was not interested at this point. 5. Hyperlipidemia. The CT scan incidentally picked up coronary artery disease. I did place him on a baby aspirin once a day which he should continue and checked a lipid panel which showed LDL cholesterol of 108, which is higher than the target of less than 90. I spoke with his about the need for lifestyle changes before trialing him on medications. The patient states that he does workout and lift weights on a regular basis though is the one responsible for cooking and she stated that with proper guidance she would be willing to alter their diet. I do suggest that he has his lipid panel redrawn in 3 months and at that point should he still be elevated, to be started on atorvastatin. New medications continued upon discharge: 1. Aspirin 81 mg p.o. daily. 2. Thiamine 100 mg p.o. daily. 3. Folic acid 1 mg p.o. daily. 4. Acetaminophen 650 mg p.o. q.6 hours p.r.n. Continued home medications: The patient does not normally take any regular medications at home. CONDITION UPON DISCHARGE: Stable. DISPOSITION: To home. TIME SPENT: Time spent on patient was about 60 minutes with 30 of that spent face- to-face. Elyse Dial, PIPELINE EXECUTIVE [id number]/[facility] #: [id number]
[2019-08-28] MEDS ORDERED: Aspirin 81 mg CHEW TAB* 81 MG TAB.CHEW PO SCH (09:00)
== END 2019-08-27 14:28 | disposition home or self-care (01) ==
LOC: ED 08:15 → INTOOBSV 10:52 → MEDTELE 10:52
PROVIDERS: ADMIT Internal Medicine; ATTEND Internal Medicine
DX: E86.0 Dehydration (principal); N17.9 Acute kidney failure, unspecified; E78.5 Hyperlipidemia, unspecified; K57.90 Diverticulosis of intestine, part unspecified, without perforation or abscess without bleeding; I25.10 Atherosclerotic heart disease of native coronary artery without angina pectoris; N40.0 Benign prostatic hyperplasia without lower urinary tract symptoms; F10.10 Alcohol abuse, uncomplicated; I10 Essential (primary) hypertension; E87.2 Acidosis; R11.2 Nausea with vomiting, unspecified; F17.200 Nicotine dependence, unspecified, uncomplicated
CPT/HCPCS: 36415; 71046; 74176; 80048; 80053; 80061; 81003; 81015; 82803; 83605; 83735; 85025; 87040; 87086; 96365; 96366; 96372; 96375; 99285; A9270-GY; G0378; J0780; J1644; J2543; J2765; J3370; J3411; J3475

== ENCOUNTER 2019-09-18 08:32 | Day surgery (SDC) | payer OTHER ==
[~2019-09-18 08:32] MED LIST changes: +Buffered Lidocaine 1% SYRIN* 1 ML/SYRINGE INTRADERM ONE; -Buffered Lidocaine 1% SYRIN* 3 ML/SYR SYRINGE INTRADERM ONE; -Bupivacaine 0.5% SDV PF* 30 ML VIAL ONE; -HYDROcodone/ACETAMIN 5-325 MG* 1 TAB ONE; -Ketorolac INJ* 30 MG/ML 1 ML VIAL IV PRN; -Ketorolac INJ* 30 MG/ML 1 ML VIAL ONE; +Lactated Ringers 1000 ML Bag* 1,000 ML IV SCH; -Midazolam* 1 MG/ML 2 ML VIAL (2 MG) ONE; -Ondansetron INJ* 2 MG/ML VIAL IV PRN; -ceFAZolin 2 GM PREMIX(*) 2 GM/50 ML BAG IVPB ONE; -fentaNYL* 50 MCG/ML 2 ML VIAL (100 MCG VIAL) ONE
[2019-09-18] MEDS ORDERED: ceFAZolin 2 GM in NS PREMIX(*) 2 GM/100 ML BAG IVPB ONE (08:52)
[2019-09-18] MEDS ORDERED: Buffered Lidocaine 1% SYRIN* 1 ML/SYRINGE INTRADERM ONE (08:52)
[2019-09-18] MEDS ORDERED: Methylene Blue 0.5 %* 50 MG/10 ML AMP IV ONE (10:28)
[2019-09-18] MEDS ORDERED: Mineral Oil Sterile, TOPICAL* 25 ML BTL ONE (10:29)
[2019-09-18] MEDS ORDERED: Bupivacaine 0.25% SDV PF* 10 ML VIAL INJ ONE (10:29)
[2019-09-18] MEDS ORDERED: Lidocaine 1% w EPI 1:100,000* MDV 20 ML VIAL ONE (10:29)
[2019-09-18] MEDS ORDERED: Petrolatum 5 GM* 5 GM PACKET ONE ×2 (10:29→10:36)
[2019-09-18] MEDS ORDERED: Midazolam* 1 MG/ML 5 ML VIAL (5 MG) ONE (10:41)
[2019-09-18] MEDS ORDERED: fentaNYL* 50 MCG/ML 2 ML VIAL (100 MCG VIAL) ONE ×2 (11:00→11:54)
[2019-09-18] MEDS ORDERED: Midazolam* 1 MG/ML 2 ML VIAL (2 MG) ONE ×2 (11:49→12:07)
[2019-09-18] MEDS ORDERED: Ondansetron INJ* 2 MG/ML VIAL IV PRN (11:49)
[2019-09-18] MEDS ORDERED: fentaNYL* 50 MCG/ML 2 ML VIAL (100 MCG VIAL) IV PRN (11:49)
[2019-09-18] MEDS ORDERED: oxyCODONE/Acetamin 5/325 MG* TAB PO PRN (11:49)
[2019-09-18] MEDS ORDERED: Naloxone* 0.4 MG/ML 1 ML VIAL IV PRN (11:49)
[2019-09-18 13:32] VITALS: BP 163/89
== END 2019-09-18 13:00 | disposition home or self-care (01) ==
LOC: OR 08:32
PROVIDERS: ATTEND Plastic Surgery
DX: C44.01 Basal cell carcinoma of skin of lip (principal); E78.5 Hyperlipidemia, unspecified; I10 Essential (primary) hypertension; F17.290 Nicotine dependence, other tobacco product, uncomplicated
CPT/HCPCS: 88305; 88331; 88332; A9270-GY; J0690; J2250; J3010; J3490

== ENCOUNTER 2023-06-20 18:18 | Observation (INO) ==
[2023-06-20 19:20] LABS: ABS Basophils 0.2 10^3/uL (0.0-0.1); ABS Eosinophils 0.1 10^3/uL (0.0-0.5); ABS Lymphocytes 2.2 10^3/uL (1.0-4.8); ABS Monocytes 1.3 10^3/uL (0.0-1.1); ABS Neutrophils 13.2 10^3/uL (1.5-7.6); ABS Nucleated RBC 0.02 10^3/ul; Eosinophil % 0.6 %; Hematocrit 54.6 % (38-53); Hemoglobin 18.9 g/dL (13.2-16.3); Mean Corpuscular Hemoglobin 33.4 pg (27-33); Mean Corpuscular Hgb Conc 34.6 g/dL (31-36); Mean Corpuscular Volume 96.6 fL (80-97); Mean Platelet Volume 8.7 fL (7.5-11.2); Nucleated Red Blood Cells % 0.1 %/100WBC (0.0-0.8); Platelet Count 249 10^3/uL (150-450); Red Blood Count 5.65 10^6/uL (4.06-5.63); Red Cell Distribution Width 13.4 % (12-17)
[2023-06-20 19:40] LABS: Albumin 5.2 g/dL (3.2-5.2); Albumin/Globulin Ratio 1.4 (1-3); C Reactive Protein 2.63 mg/L (<8.01); Calcium 11.7 mg/dL (8.6-10.3); Creatinine, Serum 1.68 mg/dL (0.67-1.17); Globulin 3.6 g/dL (2-4); Magnesium 2.1 mg/dL (1.9-2.7); Potassium 4.5 mmol/L (3.5-5.0); Total Bilirubin 1.4 mg/dL (0.2-1.0); Total Protein 8.8 g/dL (6.4-8.9); eGFR CKD-EPI 45.7 (>60)
[2023-06-20] MEDS ORDERED: NS 0.9% 1000 ml BAG 1,000 ML IV ONE ×2 (22:26→22:27)
[2023-06-20] MEDS ORDERED: Ondansetron 4 mg VIAL 2 MG/ML 2 ml VIAL IV ONE (22:27)
[2023-06-20] MEDS ORDERED: Iodixanol (CONTRAST) 320 MG/ML 100 ML SDV IV ONE (23:07)
[2023-06-20 23:19] LABS: High Sensitivity Troponin 1 Hr 7 pg/mL (<20)
[2023-06-21] MEDS ORDERED: Piperacillin/Tazobac 3.375 BAG 3.375 GM/100 ML BAG IV ONE ×2 (00:37→05:00)
[2023-06-21] MEDS ORDERED: Ondansetron 4 mg VIAL 2 MG/ML 2 ml VIAL IV ONE (00:54)
[2023-06-21] MEDS ORDERED: Ondansetron 4 mg VIAL 2 MG/ML 2 ml VIAL IV PRN (00:58)
[2023-06-21] MEDS ORDERED: Prochlorperazine 5 mg/ml 2 ml VIAL (10 mg) IV PRN (00:59)
[2023-06-21] MEDS ORDERED: Zosyn per Pharmacy NOTE FOLLOW UP SCH (02:00)
[2023-06-21] MEDS ORDERED: Thiamine 100 MG/ML 2 ml VIAL (200 mg) IM ONE (02:35)
[2023-06-21] MEDS: Lactated Ringers 1000 ml BAG 1,000 ML IV SCH ×2 (02:36→16:14)
[2023-06-21] MEDS ORDERED: LORazepam 2 mg VIAL 1 ml IV PUSH SCH (03:00)
[2023-06-21 07:31] LABS: Hematocrit 48.9 % (38-53); Hemoglobin 16.7 g/dL (13.2-16.3); Mean Corpuscular Hgb Conc 34.3 g/dL (31-36); Mean Corpuscular Volume 96.3 fL (80-97); Mean Platelet Volume 9.1 fL (7.5-11.2); Platelet Count 209 10^3/uL (150-450); Red Blood Count 5.07 10^6/uL (4.06-5.63); Red Cell Distribution Width 13.6 % (12-17); White Blood Count 14.6 10^3/uL (3.6-10.2)
[2023-06-21 07:45] LABS: Creatinine, Serum 1.48 mg/dL (0.67-1.17); Potassium 4.4 mmol/L (3.5-5.0); eGFR CKD-EPI 53.2 (>60)
[2023-06-21] MEDS: Enoxaparin 40 MG/0.4 ML SYR SUBCUT SCH (08:02)
[2023-06-21] MEDS: Multivitamins/Minerals TAB PO SCH (08:02)
[2023-06-21] MEDS: Linaclotide 290 mcg CAP (NF) PO SCH (08:05)
[2023-06-21] MEDS ORDERED: ZOSYN 3.375 GM Q8H per EXTENDED INFUSION IV SCH (09:00)
[2023-06-21 10:57] LABS: Urine Appearance Cloudy; Urine Bilirubin Negative (Negative); Urine Blood Negative (Negative); Urine Color Yellow; Urine Glucose Negative (Negative); Urine Ketones Negative (Negative); Urine Nitrite Negative (Negative); Urine Protein 1+(30 mg/dL) (Negative); Urine Specific Gravity 1.046 (1.002-1.030); Urine Urobilinogen Negative (Negative)
[2023-06-21 11:12] LABS: Urine Bacteria Absent (Absent); Urine Red Blood Cell 1+(3-5/hpf) (Absent); Urine Squamous Epithelial Cell Present (Absent); Urine White Blood Cell Trace(0-5/hpf) (Absent)
[2023-06-21] MEDS: ZOSYN 3.375 GM Q8H per EXTENDED INFUSION IV SCH (16:48)
[2023-06-22 00:44] LABS: Hematocrit 43.8 % (38-53); Hemoglobin 15.2 g/dL (13.2-16.3); Mean Corpuscular Hemoglobin 33.6 pg (27-33); Mean Corpuscular Hgb Conc 34.7 g/dL (31-36); Mean Corpuscular Volume 96.8 fL (80-97); Mean Platelet Volume 8.4 fL (7.5-11.2); Platelet Count 175 10^3/uL (150-450); Red Blood Count 4.53 10^6/uL (4.06-5.63); Red Cell Distribution Width 13.3 % (12-17); White Blood Count 11.1 10^3/uL (3.6-10.2)
[2023-06-22] MEDS: ZOSYN 3.375 GM Q8H per EXTENDED INFUSION IV SCH ×2 (01:58→09:11)
[2023-06-22 06:22] LABS: ABS Eosinophils 0.2 10^3/uL (0.0-0.5); ABS Lymphocytes 2.3 10^3/uL (1.0-4.8); ABS Monocytes 1.2 10^3/uL (0.0-1.1); Eosinophil % 2.1 %; Hematocrit 45.3 % (38-53); Hemoglobin 15.5 g/dL (13.2-16.3); Mean Corpuscular Hgb Conc 34.3 g/dL (31-36); Mean Corpuscular Volume 96.3 fL (80-97); Mean Platelet Volume 8.8 fL (7.5-11.2); Nucleated Red Blood Cells % 0.1 %/100WBC (0.0-0.8); Platelet Count 172 10^3/uL (150-450); Red Blood Count 4.71 10^6/uL (4.06-5.63); Red Cell Distribution Width 13.5 % (12-17); White Blood Count 9.7 10^3/uL (3.6-10.2)
[2023-06-22 06:40] LABS: Creatinine, Serum 0.88 mg/dL (0.67-1.17); Magnesium 2.1 mg/dL (1.9-2.7); Phosphorus 2.6 mg/dL (2.5-5.0); eGFR CKD-EPI 97.2 (>60)
[2023-06-22] MEDS: Enoxaparin 40 MG/0.4 ML SYR SUBCUT SCH (09:10)
[2023-06-22] MEDS: Multivitamins/Minerals TAB PO SCH (09:11)
[2023-06-22] MEDS: Linaclotide 290 mcg CAP (NF) PO SCH (10:37)
[2023-06-22 11:50] VITALS: BP 156/100
[2023-06-22] MEDS ORDERED: Psyllium PAK PO PRN (12:57)
[2023-06-22] MEDS ORDERED: Amoxicillin/Clavul 875/125 TAB (Augmentin 875 tab) PO SCH (13:30)
== END 2023-06-22 14:00 | disposition short-term general hospital (02) ==
LOC: ED 18:18 → EDHOLD 18:18 → SUATTDRO 06-21 00:56 → EDHOLD 06-21 09:25 → MEDTELE 06-21 14:13
PROVIDERS: ADMIT Student in an Organized Health Care Education/Training Program; ATTEND Internal Medicine

== ENCOUNTER 2024-08-01 05:58 | Observation (INO) ==
[2024-08-01] MEDS: Lactated Ringers 1000 ml BAG 1,000 ML IV ONE ×2 (06:35→09:09)
[2024-08-01] MEDS: Ondansetron 4 mg VIAL 2 MG/ML 2 ml VIAL IV ONE (06:49)
[2024-08-01 07:33] LABS: Hematocrit 55.2 % (38-53); Hemoglobin 19.3 g/dL (13.2-16.3); Mean Corpuscular Hemoglobin 32.7 pg (27-33); Mean Corpuscular Volume 93.4 fL (80-97); Red Blood Count 5.91 10^6/uL (4.06-5.63); Red Cell Distribution Width 13.9 % (12-17); White Blood Count 7.4 10^3/uL (3.6-10.2)
[2024-08-01 07:40] LABS: ALT 17 U/L (7-52); Albumin 4.8 g/dL (3.5-5.7); Albumin/Globulin Ratio 1.5 (1-3); Alkaline Phosphatase 61 U/L (35-149); Anion Gap 17 mmol/L (2-16); Blood Urea Nitrogen 63 mg/dL (6-24); CO2 Carbon Dioxide 24 mmol/L (22-32); Calcium 9.8 mg/dL (8.6-10.3); Chloride 85 mmol/L (101-111); Creatinine, Serum 2.23 mg/dL (0.67-1.17); Globulin 3.2 g/dL (2-4); Glucose 133 mg/dL (70-100); Sodium 126 mmol/L (135-145); Total Bilirubin 0.9 mg/dL (0.2-1.0); eGFR CKD-EPI 32.1 (>60)
[2024-08-01 08:12] LABS: Magnesium 2.8 mg/dL (1.9-2.7); Potassium Redraw 3.9 mmol/L (3.5-5.0)
[2024-08-01 08:44] LABS: ABS Lymphocytes 1.7 10^3/uL (1.0-4.8); ABS Monocytes 1.7 10^3/uL (0.0-1.1); ABS Neutrophils 3.9 10^3/uL (1.5-7.6); ABS Nucleated RBC 0.02 10^3/ul; Eosinophil % 0.3 %; Lymphocyte % 23.4 %; Nucleated Red Blood Cells % 0.3 %/100WBC (0.0-0.8); Platelet Count 214 10^3/uL (150-450)
[2024-08-01 11:45] LABS: C Reactive Protein 1.02 mg/L (<8.01)
[2024-08-01] MEDS: Lactated Ringers 1000 ml BAG 1,000 ML IV SCH (13:36)
[2024-08-01] MEDS ORDERED: Ondansetron 4 mg VIAL 2 MG/ML 2 ml VIAL IV PRN (14:38)
[2024-08-01] MEDS: Enoxaparin 30 MG/0.3 ML SYR SUBCUT SCH (16:46)
[2024-08-01 17:57] LABS: Osmolality Serum 309 mOsm/kg (275-295)
[2024-08-01 18:19] LABS: TSH Ultra Thyroid Stim Horm 0.64 mcIU/mL (0.34-5.60)
[2024-08-02 07:19] LABS: Calcium 8.2 mg/dL (8.6-10.3); Creatinine, Serum 0.92 mg/dL (0.67-1.17); Magnesium 2.1 mg/dL (1.9-2.7); eGFR CKD-EPI 92.9 (>60)
[2024-08-02 07:35] LABS: Hematocrit 44.7 % (38-53); Hemoglobin 15.7 g/dL (13.2-16.3); Mean Corpuscular Hemoglobin 32.8 pg (27-33); Mean Corpuscular Volume 93.6 fL (80-97); Red Blood Count 4.78 10^6/uL (4.06-5.63); Red Cell Distribution Width 13.5 % (12-17); White Blood Count 8.1 10^3/uL (3.6-10.2)
[2024-08-02 08:01] LABS: ABS Eosinophils 0.1 10^3/uL (0.0-0.5); ABS Monocytes 1.6 10^3/uL (0.0-1.1); ABS Neutrophils 4.4 10^3/uL (1.5-7.6); ABS Nucleated RBC 0.02 10^3/ul; Eosinophil % 1.3 %; Large Platelets Present; Lymphocyte % 24.3 %; Mean Platelet Volume 9.6 fL (7.5-11.2); Nucleated Red Blood Cells % 0.2 %/100WBC (0.0-0.8); Platelet Count 189 10^3/uL (150-450)
[2024-08-02] MEDS: Polyethylene Glycol 3350 17 GM PACKET PO SCH (08:46)
[2024-08-02] MEDS: LINACLOTIDE 145 MCG PO SCH (08:46)
[2024-08-02 10:30] VITALS: BP 111/80
[2024-08-03] MEDS ORDERED: CMC:LINACLOTIDE 72 MCG CAP (NF) PO SCH (09:00)
== END 2024-08-02 13:30 | disposition home or self-care (01) ==
LOC: ED 05:58 → EDHOLD 05:58 → MED 12:21
PROVIDERS: ADMIT Student in an Organized Health Care Education/Training Program; ATTEND Student in an Organized Health Care Education/Training Program